=== PATIENT | female | born 1970 | race Caucasian/White ===

== ENCOUNTER 2019-11-25 10:54 | Emergency (ER) | payer BC, SELFPAY ==
[2019-11-25 10:55] VITALS: BP 151/81; PULSE 52; RESP 16; TEMP 37.1; O2SAT 100; BMI 23.1
--- NOTE | 2019-11-25 11:28 | HMH.EDGENADL ---
ED Disposition Clinical Impression: Abrasion of sclera of left eye Qualifiers: Encounter type: initial encounter Qualified Code(s): S05.8X2A - Other injuries of left eye and orbit, initial encounter Disposition: Home, Self-Care Condition on Discharge: Good Additional Instructions: Use erythromycin ointment in left eye 4 times a day for the next 2 days. See your eye doctor tomorrow as scheduled. Leave contact lenses out of your eyes until cleared for use by your eye doctor. Tylenol or ibuprofen for pain. Additional instructions for EYE PAIN or INJURY: Follow up with an help desk internship as soon as possible. Return to the emergency department if severe pain, loss of vision, pus drainage, severe swelling or redness of eyelids. Referrals: PCP,No [Primary Care Provider] - - Critical Care Critical Care Time: No Attestation: On 11/25/19, the high probability of a clinically significant, sudden or life threatening deterioration of the following system(s) required my full and direct attention, intervention and personal management. The time I documented below is in addition to time spent performing reported procedures but includes the following listed in this critical care notation. Medical Decision Making - [place] Inquiry Pt receiving controlled substance: No Vital Signs: 11/25/19 10:55 Temperature 98.8 F Temperature Source Oral Pulse Rate [Right Brachial] 52 L Respiratory Rate 16 Blood Pressure [Right Arm] 151/81 H Blood Pressure Mean [Right Arm] 104 Blood Pressure Source [Right Arm] Automatic Cuff Blood Pressure Position [Right Arm] Sitting 02 Sat by Pulse Oximetry 100 Oxygen Delivery Method Room Air General Adult HPI - General Chief complaint: Eye Problems Stated complaint: contact stuck in eye Time Seen by Provider: 11/25/19 11:28 Mode of Arrival: Ambulatory Limitations: No Limitations Description of Symptoms (Recalled from ER Triage Doc. by RN): Pt c/o left eye pain and redness. Pt reports she is new to wearing contact, just started wearing them this week, and while attemping to remove last night a piece broke off and she believes it is still left in her eye. Pt went to [place], [place] to an Urgent treatment center but they refused to see her. - History of Present Illness HPI narrative: Patient states that she tried to take a soft contact lens out of her left eye yesterday and she thinks that a piece may still be left in there or may have scratched her eye. Complains of irritation and throbbing. She just began wearing contacts this past week, she thinks this was likely due to user error. She has an appointment to see her eye doctor tomorrow. - Related Data Home Medications Medication Instructions Recorded Confirmed No Known Home Medications 11/25/19 11/25/19 Allergies Allergy/AdvReac Type Severity Reaction Status Date / Time No Known Drug Allergies Allergy Verified 11/25/19 11:18 [facility] History - Hepatitis A Screen Drug use history?: No High risk sexual behaviors?: No History of sexually transmitted infection?: No Currently employed?: No Childcare worker?: No Do you have indoor plumbing?: Yes Do you have electricity?: Yes Attestation statement:: This patient has been screened for Hepatitis A risk factors. I have reviewed the patient's past medical history: Yes Medical History: Denies:: Cancer, Diabetes Mellitus Type 1, Diabetes Mellitus Type 2 - Social History Smoking Status: Former smoker #Yrs smoked (if former smoker): 20 Smoking End Date: 03/28/2004 Alcohol Intake: current Alcohol Intake Frequency:: holidays/special occasions only Occupational Status: employed Housing: house Household Members: spouse ROS Obtained: Yes Systems reviewed as appropriate & no additional complaints - Eyes Eyes: Reports as per HPI, Reports irritation, Reports eye pain Physical Exam - General General appearance: alert, in no apparent distress - Eye Eye exam: Present: PERRL, EOMI
--- NOTE | 2019-11-25 11:42 | PC.NURSE ---
Visual acuity completed. 20/20 Right eye and 25/20 Left eye. Exam completed with glasses on as pt wears them all the time.
[2019-11-25 12:18] VITALS: BP 151/81; PULSE 52; RESP 16; TEMP 37.1; O2SAT 100
== END 2019-11-25 12:21 | disposition home or self-care (01) ==
PROVIDERS: Emergency Provider Emergency Medicine
DX: S05.8X2A Other injuries of left eye and orbit, initial encounter (principal); H18.822 Corneal disorder due to contact lens, left eye; Y92.019 Unspecified place in single-family (private) house as the place of occurrence of the external cause
CPT/HCPCS: 99282

== ENCOUNTER 2021-12-08 18:05 | Emergency (ER) | payer BC, SELFPAY ==
[2021-12-08 18:15] VITALS: BP 155/92; PULSE 83; RESP 20; TEMP 37; O2SAT 98; BMI 24.0
[2021-12-08 18:47] LABS: Adenovirus,PCR Not Detected (NotDetected); Bordetella Pertussis Not Detected (NotDetected); Chlamydophila Pneumoniae, PCR Not Detected (NotDetected); Coronavirus 19, PCR Not Detected (NotDetected); Coronavirus 229E Not Detected (NotDetected); Coronavirus NL63 Not Detected (NotDetected); Coronavirus OC43 Not Detected (NotDetected); Coronovirus HKU1,PCR Not Detected (NotDetected); Human Metapneumovirus Not Detected (NotDetected); Influenza A, PCR Not Detected (NotDetected); Influenza AH1, 2009 Not Detected (NotDetected); Influenza AH1, PCR Not Detected (NotDetected); Influenza AH3,PCR Not Detected (NotDetected); Influenza B, PCR Not Detected (NotDetected); Mycoplasma Pneumoniae, PCR Not Detected (NotDetected); Parainfluenza 1, PCR Not Detected (NotDetected); Parainfluenza 2, PCR Not Detected (NotDetected); Parainfluenza 3, PCR Not Detected (NotDetected); Parainfluenza 4, PCR Not Detected (NotDetected); Rhinovirus/Enterovirus Not Detected (NotDetected)
--- NOTE | 2021-12-08 18:50 | EXP.UTC ---
Discharge Plan Disposition Patient Disposition: Home, Self-Care Condition: Good Prescriptions Prescriptions: New azithromycin [Zithromax Z-Costa] 250 mg tablet See Rx Instructions .ROUTE .COMPLEX 5 Days Qty: 6 0RF Rx Instructions: For 250 mg dose pack: take 500 mg today (day 1), then 250 mg for 4 days (days 2-5) prednisone [prednisone] 20 mg tablet 20 mg PO BID 5 Days Qty: 10 0RF benzonatate 100 mg capsule 100 mg PO TID PRN (Reason: cough) Qty: 30 0RF Referrals Follow up/Referrals: Provider,Referral, MD [Primary Care Provider] - See instructions Activity Restrictions/Add. Instructions Additional Instructions/Restrictions: Start antibiotic today. Be sure to complete entire prescription even if feeling better Monitor temp. Tylenol every 4 hours as needed and / or ibuprofen every 6 hours as needed ( As long as your primary care physician has told you that it ok to take both. For fever/aches/pains ER if no less than 101 despite Tylenol or Motrin Humidifier/vaporizer or hot steamy shower *Tessalon Perles will not cause drowsiness but use at bedtime to help stop cough so that you may get some rest. *Start steroid today. Helps with inflammation therefore, cough and wheezing. Follow directions on the package. Reviewed side effects. Patient reports taking them before. Follow up IMMEDIATELY for new or worsening of symptoms OR no noticeable improvement over the next 48-72 hours. 911 immediately for any life threatening symptoms such as chest pain or difficulty breathing Clinical Impressions Clinical Impression: Sinusitis, Bronchitis Stand Alone Forms Stand Alone Forms: Work/School Release Instructions Patient Instructions: Acute Bronchitis, DI for Sinusitis Discharge ED Provider: D[address] [facility] General Stated complaint: covid test, cough, EDWARDS, congestion Mode of Arrival: Ambulatory Source of Information: Patient Limitations: No Limitations Time Seen by Provider: 12/08/21 18:50 Description of Symptoms (Recalled from Triage Doc. by RN): PATIENT C/O COUGH AND CHEST BURNING SINCE TUESDAY HEENT Symptoms (Recalled from RN notes): No Resp Symptoms (Recalled from RN notes): Yes Skin Symptoms (Recalled from RN notes): No MS Symptoms (Recalled from RN notes): No Functional Status (Recalled from RN notes): WNL History of Present Illness Provider Complaint: Patient states that she has had cough, burning in her chest with cough, sinus congestion and drainage States that she has took several home COVID test and they was negative States that today she was feeling worse so she came in to get checked Related Data Previous Rx's Medication Instructions Recorded azithromycin 250 mg tablet See Rx Instructions PO .COMPLEX 5 12/08/21 (Zithromax Z-Costa) days #6 tabs benzonatate 100 mg capsule 100 mg PO TID PRN cough #30 caps 12/08/21 prednisone 20 mg tablet 20 mg PO BID 5 days #10 tabs 12/08/21 Allergies Allergy/AdvReac Type Severity Reaction Status Date / Time No Known Drug Allergies Allergy Verified 11/25/19 11:18 Worker's Comp Is this a Worker's Comp case?: No PFSH PFSH Surgical History (Updated 12/08/21 @ 18:42 by Mariel Monroe RN) History of hysterectomy History of tubal ligation Social History (Updated 12/08/21 @ 18:42 by Mariel Monroe RN) Smoking Status: Former smoker pack-years: 20 alcohol intake: current current occupational status: employed Travel in the last 8 weeks: None household members: spouse housing: house current occupation: [employer] Obtained: Yes All systems reviewed & no additional complaints except as documented and Yes Systems reviewed as appropriate & no additional complaints except as documented ENT Ears, Nose, Mouth, and Throat: Reports system reviewed and no additional complaints, except as documented, Reports as per HPI, Reports sinus pain and Reports sinus pressure Cardiovascular [facility]
[2021-12-08 19:02] VITALS: BP 155/92; PULSE 83; RESP 20; TEMP 37; O2SAT 98
[2021-12-09 03:35] LABS: Respiratory Syncytial Virus Detected (NotDetected)
== END 2021-12-08 19:09 | disposition home or self-care (01) ==
PROVIDERS: Emergency Provider Emergency Medicine
DX: J20.5 Acute bronchitis due to respiratory syncytial virus (principal); J01.90 Acute sinusitis, unspecified; Z87.891 Personal history of nicotine dependence; Z20.822 Contact with and (suspected) exposure to COVID-19
CPT/HCPCS: 87581; 87632; 87798; 99212; C9803; G0463; U0003; U0005

== ENCOUNTER 2022-06-01 07:02 | Emergency (ER) | payer BC, SELFPAY ==
[2022-06-01] VITALS (8 sets, daily range): BP systolic 123–152; BP diastolic 71–89; PULSE 52–59; RESP 15–18; TEMP 36.7–36.8; O2SAT 96–100; BMI 24.0
--- NOTE | 2022-06-01 07:16 | ECG_ITS ---
APPROVED REPORT Exam: Resting ECG HR:50 bpm ECG Measurements Heart Rate 50 AXES RI 158 P 57 QRSd 94 QRS 66 QT 424 T 42 QTc 399 Conclusion SINUS BRADYCARDIA WITH OCCASIONAL SUPRAVENTRICULAR PREMATURE COMPLEXES POSSIBLE RIGHT VENTRICULAR CONDUCTION DELAY [RSR (QR) IN V1/V2] BORDERLINE ECG UNCONFIRMED REPORT Electronically signed by : Darryn Barkley MD 06/01/2022 19:16:51
--- NOTE | 2022-06-01 07:28 | HMH.EDGENADL ---
Discharge Plan Disposition Patient Disposition: Home, Self-Care Condition: Good Chief Complaint: Shortness of Breath/Dyspnea Prescriptions Prescriptions: No Action azithromycin [Zithromax Z-Costa] 250 mg tablet See Rx Instructions .ROUTE .COMPLEX 5 Days Qty: 6 0RF Rx Instructions: For 250 mg dose pack: take 500 mg today (day 1), then 250 mg for 4 days (days 2-5) prednisone [prednisone] 20 mg tablet 20 mg PO BID 5 Days Qty: 10 0RF benzonatate 100 mg capsule 100 mg PO TID PRN (Reason: cough) Qty: 30 0RF Referrals Follow up/Referrals: Provider,MD Gracia [Primary Care Provider] - See instructions Gómez Negrete MD [Staff Physician] - See instructions Activity Restrictions/Add. Instructions Additional Instructions/Restrictions: Event monitor. Follow-up with cardiology in the office tomorrow at 9 AM. Off work until cleared by cardiology. Clinical Impressions Clinical Impression: Palpitations, Sinus arrhythmia Stand Alone Forms Stand Alone Forms: Work/School Release Instructions Patient Instructions: DI for Palpitations Discharge ED Provider: Armaan Elizalde General Adult HPI General Chief complaint: Shortness of Breath/Dyspnea Stated complaint: high blood pressure,SOA Time Seen by Provider: 06/01/22 07:33 History of Present Illness HPI narrative: 1 month history of palpitations and shortness of breath. States that many times each day she has an sensation that her heart is beating hard and sometimes fast, sometimes slow, associated with shortness of breath. She says she has a prior history of mitral valve prolapse. She had a stress test and an echocardiogram about 12 years ago and says she also had an irregular heartbeat at that time. She was seen yesterday at [facility] emergency room in [place] for the same complaints and says she had a work-up including EKG, chest x-ray, blood work. Work-up was unremarkable. She was told that she should see a senior loan processor. She was diagnosed with sinus arrhythmia. 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 She takes trazodone for sleep and oxybutynin for her bladder. No other medications or chronic medical problems. She is a non-smoker. Related Data Previous Rx's Medication Instructions Recorded azithromycin 250 mg tablet See Rx Instructions PO .COMPLEX 5 12/08/21 (Zithromax Z-Costa) days #6 tabs benzonatate 100 mg capsule 100 mg PO TID PRN cough #30 caps 12/08/21 prednisone 20 mg tablet 20 mg PO BID 5 days #10 tabs 12/08/21 Allergies Allergy/AdvReac Type Severity Reaction Status Date / Time No Known Drug Allergies Allergy Verified 11/25/19 11:18 [facility] Disclaimer: The information contained in this section may have been updated after the patient was seen, as this information can be updated by other users. Surgical History (Updated 12/08/21 @ 18:42 by Mariel Monroe RN) History of hysterectomy History of tubal ligation Social History (Updated 12/08/21 @ 18:42 by Mariel Monroe RN) Smoking Status: Never smoker alcohol intake: current current occupational status: employed Travel in the last 8 weeks: None household members: spouse housing: house current occupation: [employer] Obtained: Yes Systems reviewed as appropriate & no additional complaints except as documented Constitutional Constitutional: Denies fever(s), Denies headache(s) and Denies weakness ENT Ears, Nose, Mouth, and Throat: Denies headache(s), Denies nasal discharge and Denies sore throat Cardiovascular Cardiovascular: Denies chest pain, Reports palpitations and Reports rapid heart rate Respiratory Respiratory: Reports shortness of breath and Denies cough Gastrointestinal Gastrointestingal: Denies abdominal pain, constipation, diarrhea or vomiting Genitourinary Female G
--- NOTE | 2022-06-01 07:55 | PC.NURSE ---
Spoke with Miranda at [facility] with medical records, she will be sending over her ER records from [facility] shortly
--- NOTE | 2022-06-01 08:05 | PC.NURSE ---
cardiology office notified of consult on pt.
--- NOTE | 2022-06-01 08:14 | PC.NURSE ---
rounded on pt at this time, pt states no needs at this time. Updated pt we have contacted cardiology to come over and see her. Call light within reach, updated pts whiteboard in room.
--- NOTE | 2022-06-01 08:27 | PC.NURSE ---
Received records from [facility] and were given to BROOKE SUBRAMANIAN
--- NOTE | 2022-06-01 09:00 | PC.NURSE ---
Called Cardiology office again, spoke with Radha regarding consult.
--- NOTE | 2022-06-01 09:02 | PC.NURSE ---
Rounded on patient; she is sitting on ED stretcher looking at phone with call light within reach. She is aware that we are waiting on cardiology consult. No other needs at this time
--- NOTE | 2022-06-01 09:23 | PC.NURSE ---
Cards Provider Breanna returned consult request call to see pt
--- NOTE | 2022-06-01 09:25 | PC.NURSE ---
BROOKE SUBRAMANIAN speaking with parth sargent from cardiology
--- NOTE | 2022-06-01 09:28 | PC.NURSE ---
JOSE Carlos with Cardiology at [facility]
--- NOTE | 2022-06-01 09:41 | EXP.CARD.CON ---
History of Present Illness History of Present Illness Consult date: 06/01/22 Requesting physician: Armaan Elizalde Consult reason: shortness of breath Chief complaint: Palpitations, soa History of present illness: 51-year-old white female, with history of mitral valve prolapse, presented to emergency department requesting to be evaluated by cardiology. Patient reports she was at work yesterday at [employer] when she experienced palpitations, heart racing, and shortness of air. She went to the nurse and pulse was noted to be in the 140s. She states she was sent to [facility] ER for evaluation which was unremarkable other than an EKG showing sinus arrhythmia. Patient was advised she needs to follow-up with cardiology. Patient reports she tried to go back to work today but was not allowed to return until she is cleared by cardiology so she came here because she heard we have on-call cardiology. At this time patient denies any symptoms. Reports long history of intermittent palpitations, shortness of air, heart rate fluctuating from 40s to 140s. State blood pressure fluctuates as well, sometimes its high, other times low. Patient currently denies chest pain, dizziness, shortness of air, lower extremity edema, nausea or vomiting. Patient denies history of syncope. Upon presentation to emergency department EKG shows sinus arrhythmia with a rate ranging from high 40s to 60. [facility] Disclaimer: The information contained in this section may have been updated after the patient was seen, as this information can be updated by other users. Surgical History (Updated 12/08/21 @ 18:42 by Mariel Monroe RN) History of hysterectomy History of tubal ligation Social History (Updated 12/08/21 @ 18:42 by Mariel Monroe RN) Smoking Status: Never smoker alcohol intake: current current occupational status: employed Travel in the last 8 weeks: None household members: spouse housing: house current occupation: [employer] Review of Systems Constitutional Constitutional: Denies headache(s) and Denies weakness ENT Ears, Nose, Mouth, and Throat: Denies headache(s) *Cardiovascular Cardiovascular: Reports dyspnea and Reports irregular heart rhythm *Respiratory Respiratory: Reports dyspnea *Musculoskeletal Musculoskeletal: Denies numbness *Neurologic Neurologic: Denies headache(s), Denies numbness and Denies weakness Exam Data for Last 24 hours Vital signs and Labs for Last 24 Hours: Temp Pulse Resp BP Pulse Ox 98.3 F 59 L 16 140/81 96 06/01/22 07:25 06/01/22 08:00 06/01/22 09:30 06/01/22 09:30 06/01/22 08:30 I & O for Last 24 hours: Intake & Output 05/29/22 05/30/22 05/31/22 06/01/22 23:59 23:59 23:59 23:59 Weight 140 lb Constitutional Constitutional: no acute distress *Routine Respiratory Exam Respiratory: Present CTA bilaterally and symmetric chest movement *Routine Cardiovascular Exam Cardiovascular: Present RRR, Normal S1 and Normal S2 *Routine Abdominal Exam Abdominal: Present soft and normoactive bowel sounds; Absent tenderness *Routine Extremities Exam Extremities: Present full ROM and normal capillary refill; Absent edema *Routine Skin Exam Skin: Present intact, dry and warm Detailed Neck Exam: Thyroids Thyroid: Absent bruit Meds Home Medications and Allergies Home Medications Medication Instructions Recorded Confirmed Type azithromycin 250 mg tablet See Rx Instructions PO .COMPLEX 5 12/08/21 Rx (Zithromax Z-Costa) days #6 tabs benzonatate 100 mg capsule 100 mg PO TID PRN cough #30 caps 12/08/21 Rx prednisone 20 mg tablet 20 mg PO BID 5 days #10 tabs 12/08/21 Rx New Prescriptions to Start Prescriptions: Allergies Allergy/AdvReac Type Severity Reaction Status Date / Time No Known Drug Allergies Allergy Verified 11/25/19 11:18 Assessment and Plan *Assessment and plan (1) Sinus arrhythmia: Status: Acute Category: Medical Code(s): I49
--- NOTE | 2022-06-01 09:47 | PC.NURSE ---
notified RT of event monitor for , updated pt on POC-waiting on monitor
--- NOTE | 2022-06-01 10:12 | PC.NURSE ---
RT at placing holter monitor on patient
== END 2022-06-01 10:20 | disposition home or self-care (01) ==
PROVIDERS: Emergency Provider Emergency Medicine
DX: I49.8 Other specified cardiac arrhythmias (principal); R00.2 Palpitations; R06.02 Shortness of breath
CPT/HCPCS: 93005; 93270; 99284; 99285

== ENCOUNTER → 2022-06-23 06:04 | Outpatient (CLI) | payer BC, SELFPAY ==
--- NOTE | 2022-06-23 06:07 | CA_ITS ---
APPROVED REPORT Exam: Pharmacologic Technologist: Makayla Rueda Ht: 5 ft 4 in Wt: 146 lbs BSA: 1.71 m2 HR: 58 bpm BP: 133/62 mmHg Indications: Tachy-Bonilla Syn, Palpitations Medical History Medications: OxYbutynin,,,,, Trazodone,,,,, Stress Test Details Test: Emmanuel HR Resting HR: 71 bpm Max Heart Rate (APMHR): 167.337268 bpm Max HR Achieved: 142 bpm Target HR (85% APMHR): 141.934889 bpm % of APMHR: 85.03 Recovery HR: 85 bpm BP Resting BP: 133.0/62.0 mmHg Max BP: 172.0/93.0 mmHg Recovery BP: 148.0/80.0 mmHg ECG Resting ECG: Sinus rhythm with marked heart rate variability Clinical Exercise duration: 04:12 min Highest Stage Achieved: Exercise capacity: 1.0 METs Stress ECG Conclusion Symptoms: Shortness of air and stomach discomfort, headache. No chest pain. Arrhythmias/Ectopy: Sinus tachycardia, rare PVC ST-T Changes: NS T wave changes. Conclusion: Unremarkable Lexiscan stress. Myoview images reported separately. Test Summary REST 18:08 0.0 0.0 71 . 133/ 62 . . Stage 1 . . . . . . . Myoview Injected Stage 1 01:00 10.0 0.0 130 . . . . Stage 1 02:00 10.0 0.0 140 . 160/ 85 . . Stage 1 03:00 10.0 0.0 126 . 155/ 90 . . Stage 2 01:00 12.0 0.0 96 . 159/ 85 . . Stage 2 01:12 12.0 0.0 107 . 159/ 85 . Stop exercise at 04:12 RECOVERY 01:00 0.0 0.0 93 . 172/ 93 . . RECOVERY 02:00 0.0 0.0 88 . 143/ 95 . . RECOVERY 03:00 0.0 0.0 90 . 143/ 95 . . RECOVERY 04:00 0.0 0.0 95 . 155/ 91 . . RECOVERY 05:00 0.0 0.0 82 . 148/ 80 . . RECOVERY 05:23 0.0 0.0 89 . 148/ 80 . . Electronically signed by : Delta Carlton MD 06/23/2022 18:22:09
--- NOTE | 2022-06-23 06:07 | CA_ITS ---
APPROVED REPORT EXAM: Comprehensive 2D, Doppler, and color-flow Echocardiogram Weaver Wire Loom: Roopa Aldridge CRT Ht: 5 ft 4 in Wt: 146lbs BSA: 1.71 BP: 179/93 mmHg Indications: Shortness of Breath, Palpitations, Fatigue, Hypertension/HDD, tachy/luz marina syndrome, hx MVP, HR 40's laying, 130's standing. 2D Dimensions LVOT 1.74 cm (M/F) 1.5-2.5 LA Volume 26.30 mL LA Volume Index 15.00 mL/m2 (M/F) 16-34 M-Mode Dimensions RVDd 3.25 cm (0.9-2.6) LA Diam 2.62 cm (1.9-4.0) LVDd 4.06 cm (3.5-5.7) Ao Diam 3.28 cm (2.0-3.7) LVDs 2.38 cm (3.5-5.7) IVSd 1.16 cm (0.6-1.1) PWd 0.81 cm (0.6-1.1) EF (Teich) 72.80% FS 41.40% EDV (Teich) 72.50 mL TAPSE 2.55 (<1.7) ESV (Teich) 19.70 mL LV Diastology E Decel Time 160.00 (160-240 msec) E/A Ratio 1.26 MED E' 12.20 (< 7 cm/sec) MED A' 16.30 cm/s E'/MED E' Ratio 6.16 (>14) LAT E' 14.00 (<10 cm/sec) LAT A' 15.30 cm/s E/LAT E' Ratio 5.36 (>14) Aortic Valve AO Peak GR. 13.00 mmHg Mitral Valve MV A Velocity 60.00 (40-130 cm/s) E/A Ratio 1.26 MV Decel. Time 160.00 (160-240 ms) Pulmonary Valve PV Peak Velocity 172.00 (50-150 cm/s) Tricuspid Valve TR P. Velocity 149.00 cm/s RAP Estimate 10.00 mmHg RVSP 18.90 mmHg Left Ventricle Left atrium is normal size left ventricle is normal size, estimated ejection fraction 55% with no regional wall motion abnormality, diastolic parameters are within normal range. Right Ventricle Right atrium and right ventricle are normal size and contractility. Aortic Valve Aortic valve is grossly normal there is no aortic stenosis aortic insufficiency. Mitral Valve Mitral valve is grossly normal, there is trace mitral regurgitation. Tricuspid Valve Tricuspid grossly normal, there is trace tricuspid regurgitation, tricuspid regurgitation jet velocity is inadequate for calculation of the right ventricular systolic pressure. Pulmonic Valve Pulmonic valve is poorly visualized. Great Vessels Aortic root normal size. Inferior vena cava normal size with normal inspiratory collapse. Pericardium No significant pericardial failure. Conclusion 1. Normal left ventricular size preserved left ventricular systolic function, estimated ejection fraction 55% with no regional wall motion abnormality, diastolic parameters are within normal range. 2. Trace mitral and tricuspid regurgitation. 3. No significant pericardial effusion noted. 4. Inferior vena cava is normal size with normal inspiratory collapse. Electronically signed by : Delta Carlton MD 06/23/2022 21:10:42
--- NOTE | 2022-06-23 06:07 | NM_ITS ---
APPROVED REPORT Exam: Nuclear Stress Test Indication: CHEST PAIN..SHORT OF BREATH..PALPITATIONS..FATIGUE Patient Location: Outpatient Stress Tech: Makayla Rueda NC Tech:Gail Almaraz VIKTORIYA RT(R)(N) Ht: 5 ft 4 in Wt: 140 lbs Bra Size: 34B HR: 71 bpm BP: 133/62 mmHg BSA: 1.68 m2 TID: 1.16 BMI: 24.0 History: CHEST PAIN..SHORT OF BREATH..PALPITATIONS..FATIGUE Procedure: Patient received 0.4 mg of intravenous Lexiscan, resting heart rate 71 bpm, resting blood pressure 133/62 mmHg, with Lexiscan maximum heart rate achieved was 142 bpm which is Less than 85 % of the maximum predicted heart rate and blood pressure was 172/93 mmHg. With Lexiscan, patient denied any complaint of chest pain. Electrocardiogram Resting electrocardiogram shows sinus rhythm, with Lexiscan less than 1.[address] segment depression noted from the baseline EKG. The EKG portion of the Lexiscan is nondiagnostic. Cardiac Stress and Resting SPECT Images: Cardiac Stress and Resting SPECT images were obtained using technetium 99m Myoview 31.7 mCi stress and 10.37 mCi at rest. Gated SPECT analysis of segmental wall motion and calculation of the ejection fraction also done. Prone images were also obtained. Cardiac stress and rest respectively show uniform myocardial activity without segmental perfusion abnormality, computer derived ejection fraction is 53% with no regional wall motion abnormality, right ventricle is normal size and contractility. Conclusion: 1. The EKG portion of the Lexiscan is nondiagnostic. 2. No scintigraphic evidence of reversible ischemia seen, computer derived ejection fraction is 53% with no regional wall motion abnormality, right ventricle is normal size and contractility. 3. Normal Lexiscan Myoview study. Electronically signed by : Delta Carlton MD 06/23/2022 18:38:51
== END ==
PROVIDERS: Visit Provider Nurse Practitioner
DX: R00.2 Palpitations (principal); I49.5 Sick sinus syndrome; I49.8 Other specified cardiac arrhythmias
CPT/HCPCS: 78452; 93017; 93306; A9502; J2785

== ENCOUNTER → 2022-06-28 08:56 | Outpatient (CLI) | payer BC, SELFPAY ==
[2022-06-28 09:56] LABS: Basophils % 0.9 % (0.1-2.0); Eosinophils # 0.1 K/mm3 (0.0-0.4); Eosinophils % 2.5 % (0.1-12.0); Hemoglobin 13.5 g/dL (12.2-16.2); Lymphocytes # 1.6 K/mm3 (0.7-4.5); Lymphocytes % 36.6 % (10-50); Mean Corpuscular HGB Conc 33.8 g/dL (31.8-35.4); Mean Corpuscular Hemoglobin 31.7 pg (27.0-31.2); Mean Corpuscular Volume 93.9 fl (81-99); Mean Platelet Volume 8.1 fl (7.4-10.4); Monocytes # 0.3 K/mm3 (0.1-1.0); Monocytes % 5.9 % (1.7-9.3); Neutrophils # 2.4 K/mm3 (1.8-7.8); Platelet Count 249 K/mm3 (142-424); Red Blood Count 4.26 M/mm3 (4.20-5.40); Red Cell Distribution Width 12.3 % (11.5-17.5); White Blood Count 4.5 K/mm3 (4.8-10.8)
[2022-06-28 10:39] LABS: Alanine Aminotransferase 34 U/L (12-78); Albumin Level 4.7 g/dl (3.5-5.0); Alkaline Phosphatase 85 U/L (38-126); Anion Gap 10.3 mEq/L (5-15); Aspartate Amino Transferase 30 U/L (14-36); Bilirubin,Indirect 0.4 mg/dL (0.0-0.9); Bilirubin,Total 0.4 mg/dl (0.2-1.3); Bilirubin,Unconjugated 0.5 mg/dL (0.0-1.1); Blood Urea Nitrogen 14 mg/dl (7-17); Carbon Dioxide 30 mmol/L (22.0-30.0); Chloride 104 mmol/L (98-107); Chol/HDL Ratio 3.4 (1-3.5); Cholesterol 226 mg/dl (140-200); Estimated Glomerular Filt Rate 75 ml/min (>60); GFR (African American) 91 ML/MIN (>60); Glucose 93 mg/dl (74-100); HDL Cholesterol 66 mg/dl (40-60); Potassium 4.3 mmoL/L (3.5-5.1); Sodium 140 mmol/L (136-145); Total Protein,Serum 7.2 g/dl (6.3-8.2); Triglycerides 98 mg/dl (30-150); VLDL Cholesterol 20 mg/dL (0-40)
[2022-06-28 10:50] LABS: Direct LDL Cholesterol 109.16 mg/dL (100-129)
[2022-06-28 10:55] LABS: Free T4 (Free Thyroxine) 1.12 ng/dl (0.78-2.19)
[2022-06-28 11:09] LABS: Thyroid Stimulating Hormone 3.55 uIU/mL (0.465-4.68)
== END ==
PROVIDERS: Visit Provider Nurse Practitioner
DX: R06.00 Dyspnea, unspecified (principal); I49.5 Sick sinus syndrome; I49.8 Other specified cardiac arrhythmias; R00.2 Palpitations; R00.1 Bradycardia, unspecified; I63.9 Cerebral infarction, unspecified; I99.8 Other disorder of circulatory system; I11.9 Hypertensive heart disease without heart failure; E11.9 Type 2 diabetes mellitus without complications
CPT/HCPCS: 36415; 80048; 80061; 80076; 84439; 84443; 85025

== ENCOUNTER 2022-07-07 11:43 | Day surgery (SDC) | payer BC, SELFPAY ==
[2022-07-07] VITALS (9 sets, daily range): BP systolic 99–148; BP diastolic 44–85; PULSE 51–95; RESP 16–18; O2SAT 94–100; BMI 24.7
--- NOTE | 2022-07-07 07:12 | IR_ITS ---
APPROVED REPORT Patient Location: Outpatient Temperature Regulator Pyrometer: VIKTORIYA Cowart RT (R) PROCEDURES 1. Pocket formation for Permanent Pacemaker Placement. 2. Placement of an atrial sensing and pacing coil into the right atrial appendage. 3. Placement of a ventricular sensing and pacing coil in the right ventricular apex. 4. Permanent Pacemaker Placement. INDICATION Sick Sinus Syndrome; Tachy/Bonilla Syndrome Informed consent was obtained prior to the procedure. COMPLICATIONS None Estimated Blood Loss: Less than 10 mls TECHNIQUE 1% Lidocaine with epinephrine used to anesthetized the left anterior aspect of the chest. Scalpel was used to make the initial cutaneous incision while electrocautery was used to dissect down tinto the fascia. The fascia was lifted off the pectoralis muscle and digitally manipulated creating a pocket for the pacemaker. The patient was then placed in Trendelenburg position and the subclavian vein was accessed twice via the Selinger technique, there are two wires in the vein. A 6 [place] Helen[place] sheath was placed under fluoroscopic guidance into the subclavian vein over one of the wires while keeping the other wire in place within the subclavian vein. The dilator was removed from the sheath. Using fluoroscopic guidance, the ventricular lead was placed into the right ventricular apex, screwed and secured into place. Electronic interrogation proved acceptable thresholds and voltage within the lead. Using 3-0 silk, the ventricular lead was then secured into place. Lead was secured to the facia using the 3-0 silk. Following this, the sheath was pealed away. An additional 6 St Helenian fresh sheath and dilator was placed over the existing wire. Using fluoroscopic guidance, the atrial lead was the placed into the right atrial appendage and screwed and secured in place. Electrical interrogation demonstrated acceptable thresholds and voltage number. The atrial lead was then secured into place using 3-0 silk. 1 gram of Ancef was used to flush the pocket. Following the pacemaker generator being secured to the fascia and in place, Monocryl was used to close the subcutaneous layers while freedom were used to close the cutaneous layer. A pressure dressing was placed and the patient was transferred to the postop holding area in stable condition for postoperative care. INTERROGATION Generator Model number: [employer]gen [id number] Generator Serial number: [id number] Atrial lead model number: Tendril STS [id number]-46 Atrial lead serial number: [id number] P-wave: 0.5 V Impedence: 640 Ohms Threshold: 0.4 ms @ 2.0 mV Right Ventricular lead model number: Nahid MAYS [id number]-52 Right Ventricular lead serial number: [id number] R-wave: 0.5 v Impedence: 940 Ohms Threshold: 0.4 ms @ 9.9 mV Pacing Parameters: Mode: DDDR Base/Max Track:60 ppm / 130 ppm No diaphragmatic stimulation at 10 volts. IMPRESSION 1. Successful pocket formation for Permanent Pacemaker Placement. 2. Successful placement of an atrial sensing and pacing coil into the right atrial appendage. 3. Successful placement of a ventricular sensing and pacing coil in the right ventricular apex. 4. Successful permanent Pacemaker Placement. PLAN 1. Post op wound care Electronically signed by : Gómez Negrete MD 07/08/2022 08:35:04
--- NOTE | 2022-07-07 13:20 | EXP.ANES.CKL ---
[facility] Disclaimer: The information contained in this section may have been updated after the patient was seen, as this information can be updated by other users. Medical History Fluctuating blood pressure HTN (hypertension) Symptomatic bradycardia Tachy-luz marina syndrome Surgical History History of hysterectomy History of tubal ligation Social History Smoking Status: Never smoker alcohol intake: current substance use type: denies use current occupational status: employed Travel in the last 8 weeks: None household members: spouse housing: house current occupation: [employer] Anesthesia Checklist Patient Identification Patient Identification: Arm Band and Verbal (Name & ) Structural Data Admitted From: Home Planned Operative Procedure/s: Dual chamber pacemaker Consent for Planned Operative Procedure(s) Verified: Yes NPO Status Verified Time NPO: 00:00 Airway Assessment C-Spine Mobility Assessed: Yes TMJ Mobility Assessed: Yes Dentition: Good Dentition Neurological Assessment Level of Consciousness: Awake Hx Seizures: No Numbness or tingling in extremities: No Anesthesia Plan Anesthesia Risk discussed: Yes Anesthesia Plan: Verified ASA Class: III Anesthesia Type: MAC
--- NOTE | 2022-07-07 14:46 | XR_ITS ---
FINAL REPORT CLINICAL HISTORY: Confirm pacemaker/AID placement FINDINGS: SINGLE-VIEW CHEST The heart size is normal. The mediastinum is normal. Left-sided pacemaker is identified. The lungs are clear. There is no pneumothorax. IMPRESSION: No acute cardiopulmonary process. Reviewed, Interpreted and Dictated by Abdi Suarez III, MD Transcribed by Uzma Montalvo Authenticated and [facility]
== END 2022-07-07 16:55 | disposition home or self-care (01) ==
PROVIDERS: Visit Provider Internal Medicine
DX: I49.5 Sick sinus syndrome (principal); I10 Essential (primary) hypertension; Z79.899 Other long term (current) drug therapy; I99.8 Other disorder of circulatory system
CPT/HCPCS: 33208; 71045; C1785; C1898; J2704

== ENCOUNTER → 2022-07-30 07:51 | Outpatient (CLI) | payer BC, SELFPAY ==
--- NOTE | 2022-07-30 07:55 | CA_ITS ---
FINAL REPORT CLINICAL HISTORY: HTN FINDINGS: Aorta velocity: 148 cm/sec Right kidney: 10.9 cm. No evidence of hydronephrosis or mass. Right intrarenal RI: .63 Right renal artery velocity: 187 cm/sec. Right RAR (Renal artery-Aortic Ratio): 1.3 Left Kidney: 11.1 cm. No evidence of hydronephrosis or mass. Left intrarenal RI: .54 Left renal artery velocity: 178 cm/sec. Left RAR (Renal Artery-Aortic Ratio): 1.2 IMPRESSION: No evidence of significant renal artery stenosis. CT angiogram or postcontrast MR angiogram would be more sensitive for evaluation of possible renal artery stenosis. Reviewed, Interpreted and Dictated by Aryan Perez MD Transcribed by Uzma Montalvo Authenticated and . [facility]
--- NOTE | 2022-07-30 08:19 | US_ITS ---
FINAL REPORT CLINICAL HISTORY: I10 - Essential (primary) hypertension FINDINGS: The right kidney measures 9.8 cm in length. It is normal in echogenicity. There is no hydronephrosis. The left kidney measures 10.6 cm in length. It is normal in echogenicity. There is no hydronephrosis. The spleen is unremarkable. IMPRESSION: Normal renal ultrasound. Reviewed, Interpreted and Dictated by Aryan Perez MD Transcribed by Uzma Montalvo Authenticated and [facility]
== END ==
PROVIDERS: PCP Internal Medicine; Visit Provider Physician Assistant
DX: I10 Essential (primary) hypertension (principal); I99.8 Other disorder of circulatory system; Z95.0 Presence of cardiac pacemaker
CPT/HCPCS: 76770; 93976

== ENCOUNTER → 2022-12-06 13:36 | Outpatient (CLI) | payer BC, SELFPAY ==
--- NOTE | 2022-12-06 13:41 | XR_ITS ---
FINAL REPORT CLINICAL HISTORY: cough, shortness of breath COMPARISON: 07/07/2022 FINDINGS: Two views of the chest were obtained. Left subclavian pacer is present. The heart size and pulmonary vascularity are within normal limits. The mediastinum is normal. No acute pulmonary abnormality is identified. There is no pneumothorax. The bony thorax is intact. IMPRESSION: No active cardiopulmonary disease. Reviewed, Interpreted and Dictated by Abdi Suarez III, MD Transcribed by Yessenia Mims Authenticated and [facility]
== END ==
PROVIDERS: Visit Provider Physician Assistant
DX: R06.02 Shortness of breath (principal); R05.9 Cough, unspecified; R60.0 Localized edema
CPT/HCPCS: 71046

== ENCOUNTER → 2022-12-27 14:57 | Outpatient (CLI) | payer BC, SELFPAY ==
--- NOTE | 2022-12-27 15:00 | CA_ITS ---
APPROVED REPORT EXAM: Comprehensive 2D, Doppler, and color-flow Echocardiogram Sound Person: Ileana Vieira RT(R) Ht: 5 ft 3 in Wt: 145lbs BSA: 1.69 BP: 147/87 mmHg Indications: dyspnea, pacemaker, edema, HTN, SOB, hx tachy-luz marina syndrome 2D Dimensions LVOT 1.93 cm (M/F) 1.5-2.5 LA Volume 49.70 mL LA Volume Index 29.41 mL/m2 (M/F) 16-34 M-Mode Dimensions RVDd 2.75 cm (0.9-2.6) LA Diam 2.93 cm (1.9-4.0) LVDd 5.03 cm (3.5-5.7) Ao Diam 2.15 cm (2.0-3.7) LVDs 3.79 cm (3.5-5.7) IVSd 0.80 cm (0.6-1.1) PWd 0.54 cm (0.6-1.1) EF (Teich) 48.60% FS 24.70% EDV (Teich) 119.90 mL ESV (Teich) 61.60 mL LV Diastology E Decel Time 183.00 (160-240 msec) E/A Ratio 1.3 MED E' 10.00 (< 7 cm/sec) E'/MED E' Ratio 8.54 (>14) LAT E' 12.90 (<10 cm/sec) E/LAT E' Ratio 6.62 (>14) Mitral Valve MV E Max Alpesh. 85.00 (40-130 cm/s) MV A Velocity 63.00 (40-130 cm/s) E/A Ratio 1.36 MV Decel. Time 183.00 (160-240 ms) MV PHT 54.00 ms Tricuspid Valve TR P. Velocity 259.00 cm/s RAP Estimate 10.00 mmHg RVSP 36.80 mmHg Left Ventricle The left ventricle is normal size. The left ventricular systolic function is normal. The left ventricular ejection fraction is within the normal range. There is normal left ventricular wall thickness. There is normal LV segmental wall motion. The left ventricular diastolic function is normal. LVEF is 65%. Right Ventricle The right ventricle is mildly dilated. The right ventricular systolic function is normal. Device lead is noted in the RV. Atria The left atrium size is normal. The right atrium size is normal. There is no Doppler evidence of interatrial shunt. Aortic Valve The aortic valve is normal in structure. There is no aortic valvular stenosis. No aortic regurgitation is present. Mitral Valve The mitral valve is normal in structure. No evidence of mitral valve stenosis. Trace mitral regurgitation. Tricuspid Valve The tricuspid valve leaflets are thin and pliable. Mild tricuspid regurgitation. RVSP is 20-25 mmHg. Pulmonic Valve The pulmonary valve is normal in structure. Trace pulmonic regurgitation. Great Vessels The aortic root is normal in size. The ascending aorta is normal in size. IVC is normal in size and collapses >50% with inspiration. Pericardium There is no pericardial effusion. Other Information Study Quality: Adequate Conclusion Normal biventricular systolic function. Mild RV dilatation. No significant valvular stenosis or regurgitation. Electronically signed by : Neha Duncan MD 12/27/2022 23:02:13
== END ==
PROVIDERS: Visit Provider Physician Assistant
DX: R06.02 Shortness of breath (principal); I10 Essential (primary) hypertension; R05.9 Cough, unspecified; R60.0 Localized edema; Z95.0 Presence of cardiac pacemaker
CPT/HCPCS: 93306

== ENCOUNTER → 2023-01-03 16:03 | Outpatient (CLI) | payer BC, SELFPAY ==
[2023-01-03 18:37] LABS: Blood Urea Nitrogen 20 mg/dl (7-17); Estimated Glomerular Filt Rate 65 ml/min (>60); GFR (African American) 79 ML/MIN (>60)
== END ==
PROVIDERS: Internal Medicine; PCP Nurse Practitioner Family; Visit Provider Nurse Practitioner Family
DX: R07.9 Chest pain, unspecified (principal)
CPT/HCPCS: 36415; 82565; 84520

== ENCOUNTER → 2023-01-10 12:04 | Outpatient (CLI) | payer BC, SELFPAY ==
--- NOTE | 2023-01-10 12:25 | PC.NURSE ---
pt arrived to preop c/o nausea, EDWARDS, and cough. She stated she wanted to cancel but didnt want to not be able to get in again for a while. this RN spoke with Quentin Harper APRN, whom stated to cancel test and get it rescheduled. pt is rescheduled now for 01/24/23 at 1000. pt instructed to call cardiology office when they are off lunch to reschedule follow up with them.
== END ==
PROVIDERS: PCP Nurse Practitioner Family; Visit Provider Nurse Practitioner Family
DX: R07.9 Chest pain, unspecified (principal)

== ENCOUNTER → 2023-01-24 08:55 | Outpatient (CLI) | payer BC, SELFPAY ==
--- NOTE | 2023-01-24 08:59 | CT_ITS ---
APPROVED REPORT Chargemaster Analyst: CLINICAL INDICATION Chest Pain TECHNIQUE Image Acquisition: A 128 slice MDCT scanner (FLX Microa View) was used for data acquisition. A noncontrast coronary calcium scan was performed. A CT attenuation threshold of 130 Hounsfield units (HU) was used for the detection of calcium in contiguous voxels of 1 sq mm in area to be counted as individual lesions. Bolus tracking in the ascending aorta with a threshold of 180 HU was performed. Immediately afterwards, ECG synchronized cardiac CT was then performed from the cardiac base to apex using retrospective gating with ECG tube current modulation. A total of 85 mL of Isovue 370 mg/mL contrast medium was administered at 5 mL/sec followed by a saline flush using a biphasic injection protocol. A tube voltage of 120 KVp was used. The patient received the following medications prior to the cardiac CT. 0.8 mg of sublingual nitroglycerin The average heart rate at the time of acquisition was 60 bpm and V-paced. Image Reconstruction Transaxial images were reconstructed at 0.67 mm slide thickness. Data was reviewed interactively on an advanced workstation capable of 2 and 3-dimensional displays in all conventional reconstruction formats, including multiplanar reformations, maximum intensity projections, curved multiplanar reformations, and volume rendered reconstructions. When applicable, selected routine images describing the relevant coronary anatomy and pathology were saved and sent to PACS. Complications None Technical Quality Overall image quality was good. Coronary artery opacification was adequate. Total DLP (Dose-Length Product) is 1375.8 mGy-cm. The reported value represents the total of one or more individual components during the CT acquisition of this date and at this time, and as such, the same value may appear in more than one CT report depending on the interpreting/reporting physicians. COMPARISON None FINDINGS CT Coronary Calcium Scoring LMA (Left Main Artery) = 0 LAD (Left Anterior Descending) = 0 LCX (Left Coronary Circumflex) = 0 RCA (Right Coronary Artery) = 0 Total Calcium Score = 0 using the AJ-130 method. The interpretation of the calcium heart score is based on the following continuum*: 0 = no calcified plaque detected (risk of coronary artery disease is very low ??? less than 5%) 1-10 = calcium detected in extremely minimal levels (risk of coronary diseases is still low ??? less than 10%) 11-100 = mild levels of plaque detected with certainty (mild or minimal narrowing of heart arteries is likely) 101-400 = definite,at least moderate levels of plaque detected (relatively high risk of a heart attack within 3-5 years) >401-999 = extensive levels of plaque detected (high risk of heart attack, high levels of vascular disease are present, high likelihood of at least one significant coronary narrowing) *The calcium heart score quantifies the burden of coronary calcification/plaque in the coronary arteries. The calcium heart score is not able to evaluate the presence or burden of non-calcified (i.e. soft) plaque. There is no identifiable calcification in the aortic valve, mitral annulus or mitral valve, pericardium, or myocardium. Coronary CT Angiography Coronaries have normal origin and proximal course. The coronary arterial system is right dominant. Note: Stenosis is reported as maximum percentage diameter stenosis. Quantitative Stenosis Grading: Left Main (LM): The left main originates normally from the left sinus of Valsalva. The LM trifurcates into the left anterior descending artery, ramus intermedius, and left circumflex artery. The LM is patent with no evidence of atherosclerosis. Left Anterior Descending (LAD) and Diagonal B
[2023-01-24 09:12] VITALS: BP 122/67; PULSE 60; RESP 18; TEMP 37; O2SAT 99; BMI 24.0
[2023-01-24 09:30] VITALS: BP 134/91; PULSE 61
--- NOTE | 2023-01-24 09:30 | PC.NURSE ---
Arrived to CT, VSS, Nitro 0.8mg SL given per CTA standing orders
[2023-01-24 09:33] VITALS: BP 135/48
--- NOTE | 2023-01-24 09:33 | PC.NURSE ---
post nitro BP 135/48
[2023-01-24 09:38] VITALS: BP 114/73; PULSE 59
--- NOTE | 2023-01-24 09:38 | PC.NURSE ---
CTA complete, VSS, transported to post op for recovery, report to Nevin Clay RN
[2023-01-24 09:43] VITALS: BP 115/72; PULSE 60; RESP 18; TEMP 36.2; O2SAT 100
[2023-01-24 09:58] VITALS: BP 114/72; PULSE 60; RESP 17; O2SAT 99
== END | disposition home or self-care (01) ==
PROVIDERS: Visit Provider Nurse Practitioner Family
DX: R07.9 Chest pain, unspecified (principal); I10 Essential (primary) hypertension; R60.0 Localized edema
CPT/HCPCS: 75574; Q9967

== ENCOUNTER 2023-03-14 09:11 | Emergency (ER) | payer BC, SELFPAY ==
[2023-03-14 09:30] VITALS: BP 131/77; PULSE 61; RESP 18; TEMP 37.1; O2SAT 97; BMI 24.0
--- NOTE | 2023-03-14 10:00 | EXP.UTC ---
Discharge Plan Disposition Patient Disposition: Home, Self-Care Condition: Good Prescriptions Prescriptions: No Action bisoprolol fumarate 5 mg tablet 5 mg PO DAILY Qty: 30 5RF trazodone 50 mg tablet 50 mg PO HS PRN (Reason: .) Patient Comments: TAKE 1 TO 2 TABLETS BY MOUTH EVERY DAY AT BEDTIME NEEDED FOR SLEEP oxybutynin chloride 10 mg tablet extended release 24hr 10 mg PO DAILY Patient Comments: TAKE 1 TABLET BY MOUTH ONCE DAILY Referrals Follow up/Referrals: Provider,Referral, MD [Primary Care Provider] - See instructions Activity Restrictions/Add. Instructions Additional Instructions/Restrictions: *Monitor Temp, Over the counter Motrin or Tylenol as directed/as needed Tylenol every 4 hours and Motrin every 6 hours (as long as your family doctor has told you that you can take it) for fever or pain. and straight to ER if unable to lower temp less than 101.0 after medication given *Warm salt water gargles may help to soothe the throat *Throat Lozenges? *Warm fluids like tea with honey may help to soothe the throat? *Sleep elevated *Humidifier/Vaporizer Follow up IMMEDIATELY for new or worsening symptoms or no Noticeable improvement over the next 48-72 hours. 911 for difficulty breathing or swallowing You were tested for today for COVID19 your test result should be back in the next 24hours, you may check your results on the [facility] [employer] [facility] Portal If your COVID test is positive you must Quarantine for 5 days Clinical Impressions Clinical Impression: Viral syndrome Stand Alone Forms Stand Alone Forms: Work/School Release Instructions Patient Instructions: DI for COVID-19 (Suspected or Confirmed ) Discharge ED Provider: Eliza Craig [facility] HPI General Stated complaint: pos covid test,congestion, cough, sore throat, h/a Mode of Arrival: Ambulatory Source of Information: Patient Limitations: No Limitations Time Seen by Provider: 03/14/23 10:00 Description of Symptoms (Recalled from Triage Doc. by RN): tested positive for covid at home. Her symptoms are EDWARDS, congestions, and body aches. HEENT Symptoms (Recalled from RN notes): No Resp Symptoms (Recalled from RN notes): No Skin Symptoms (Recalled from RN notes): No MS Symptoms (Recalled from RN notes): No Functional Status (Recalled from RN notes): n/a History of Present Illness Provider Complaint: Patient states that she started feeling bad yesterday States that she has been having bodyaches, chills, and headache since yesterday States that body aches got worse last night and this morning she took home COVID test and it was positive So she had to come in and get tested for Work to have a positive test from clinic Related Data Home Medications Medication Instructions Recorded Confirmed oxybutynin chloride 10 mg 10 mg PO DAILY . 06/02/22 03/14/23 tablet,extended release 24 hr trazodone 50 mg tablet 50 mg PO HS PRN . 06/02/22 03/14/23 Previous Rx's Medication Instructions Recorded bisoprolol fumarate 5 mg tablet 5 mg PO DAILY #30 tabs 08/19/22 Allergies Allergy/AdvReac Type Severity Reaction Status Date / Time No Known Drug Allergies Allergy Verified 03/14/23 09:45 Worker's Comp Is this a Worker's Comp case?: No [facility] Disclaimer: The information contained in this section may have been updated after the patient was seen, as this information can be updated by other users. Medical History Chest pain Fluctuating blood pressure HTN (hypertension) Symptomatic bradycardia Tachy-luz marina syndrome Surgical History History of hysterectomy History of tubal ligation Family History Other No significant family history Social History Smoking Status: Never smoker
[2023-03-14 10:10] VITALS: BP 131/77; PULSE 61; RESP 18; TEMP 37.1; O2SAT 97
== END 2023-03-14 10:10 | disposition home or self-care (01) ==
PROVIDERS: Emergency Provider Nurse Practitioner
DX: U07.1 COVID-19 (principal); R51.9 Headache, unspecified; R07.0 Pain in throat; R50.9 Fever, unspecified; M79.18 Myalgia, other site; R05.9 Cough, unspecified; R09.81 Nasal congestion; I10 Essential (primary) hypertension; I49.5 Sick sinus syndrome
CPT/HCPCS: 87635; 99212; 99214; G0463

== ENCOUNTER 2023-05-31 13:17 | Outpatient (CLI) | payer BC, SELFPAY ==
[2023-05-31 13:21] LABS: Basophils % 0.7 % (0.1-2.0); Eosinophils # 0.1 K/mm3 (0.0-0.4); Eosinophils % 1.8 % (0.1-12.0); Hematocrit 42.7 % (37.0-47.0); Hemoglobin 13.6 g/dL (12.2-16.2); Lymphocytes # 1.5 K/mm3 (0.7-4.5); Lymphocytes % 30.3 % (10-50); Mean Corpuscular HGB Conc 31.8 g/dL (31.8-35.4); Mean Corpuscular Hemoglobin 31.2 pg (27.0-31.2); Mean Platelet Volume 8.2 fl (7.4-10.4); Monocytes # 0.4 K/mm3 (0.1-1.0); Monocytes % 8.6 % (1.7-9.3); Neutrophils % 58.6 % (37.0-80.0); Platelet Count 238 K/mm3 (142-424); Red Blood Count 4.36 M/mm3 (4.20-5.40); White Blood Count 5.1 K/mm3 (4.8-10.8)
[2023-05-31 13:33] LABS: Alanine Aminotransferase 40 U/L (12-78); Albumin Level 4.6 g/dl (3.5-5.0); Albumin/Globulin Ratio 1.8 (1.1-1.8); Alkaline Phosphatase 104 U/L (38-126); Aspartate Amino Transferase 36 U/L (14-36); Bilirubin,Total 0.4 mg/dl (0.2-1.3); Blood Urea Nitrogen 15 mg/dl (7-17); Calcium 9.5 mg/dl (8.4-10.2); Carbon Dioxide 28 mmol/L (22.0-30.0); Chloride 106 mmol/L (98-107); Estimated Glomerular Filt Rate 87 ml/min (>60); GFR (African American) 106 ML/MIN (>60); Globulin 2.5 g/dL (1.3-3.2); Glucose 89 mg/dl (74-100); Magnesium 2.2 mg/dl (1.6-2.3); Sodium 142 mmol/L (136-145); Total Protein,Serum 7.1 g/dl (6.3-8.2)
[2023-05-31 13:55] LABS: 25-OH Vitamin D, Total 50.5 ng/mL (30-100)
[2023-05-31 14:07] LABS: Thyroid Stimulating Hormone 1.89 uIU/mL (0.465-4.68)
[2023-05-31 14:26] LABS: Vitamin B12 581 pg/mL (239-931)
[2023-05-31 16:04] LABS: Ferritin 38.1 ng/ml (11.1-264)
== END 2023-05-31 23:59 ==
LOC: LAB.DROPOF 13:17
PROVIDERS: PCP Nurse Practitioner Family; Visit Provider Nurse Practitioner Family
DX: I10 Essential (primary) hypertension (principal); I49.5 Sick sinus syndrome; R53.83 Other fatigue; M62.838 Other muscle spasm
CPT/HCPCS: 80053; 82306; 82607; 82728; 83735; 84443; 85025

== ENCOUNTER 2023-09-19 10:14 | Outpatient (CLI) | payer BC, SELFPAY ==
--- NOTE | 2023-09-19 10:26 | US_ITS ---
FINAL REPORT TECHNIQUE: Real-time grayscale and color ultrasound of the thyroid was performed. CLINICAL HISTORY: Swelling left side of neck COMPARISON: None FINDINGS: The thyroid gland is normal in size measuring 49 x 12 x 13 mm on the right and 48 x 10 x 13 mm on the left. The isthmus measures 2 mm. The parenchyma is unremarkable . Nodules: There are numerous lesions, all benign appearing cysts except for a solid right thyroid isthmus nodule which is isoechoic measuring 7 x 3 x 5 mm and most likely benign based on morphology and size. IMPRESSION: Benign appearing nodules as above. No additional follow-up considered warranted per TI-RADS criteria. Reviewed, Interpreted and Dictated by Kenny Rosenbaum MD Transcribed by Yessenia Mims Authenticated and [facility]
== END 2023-09-19 23:59 | disposition home or self-care (01) ==
LOC: RAD 10:15
PROVIDERS: PCP Nurse Practitioner Family; Visit Provider Nurse Practitioner
DX: R22.1 Localized swelling, mass and lump, neck (principal)
CPT/HCPCS: 76536

== ENCOUNTER 2023-09-23 15:41 | Outpatient (CLI) | payer BC, SELFPAY ==
[2023-09-23 13:33] LABS: Basophils # 0.1 K/mm3 (0-0.2); Basophils % 1.1 % (0.1-2.0); Eosinophils # 0.1 K/mm3 (0.0-0.4); Eosinophils % 2.2 % (0.1-12.0); Hematocrit 44.6 % (37.0-47.0); Hemoglobin 14.3 g/dL (12.2-16.2); Lymphocytes # 1.8 K/mm3 (0.7-4.5); Mean Corpuscular HGB Conc 32.2 g/dL (31.8-35.4); Mean Corpuscular Hemoglobin 30.7 pg (27.0-31.2); Mean Corpuscular Volume 95.5 fl (81-99); Mean Platelet Volume 7.6 fl (7.4-10.4); Monocytes # 0.3 K/mm3 (0.1-1.0); Monocytes % 6.7 % (1.7-9.3); Neutrophils # 2.8 K/mm3 (1.8-7.8); Neutrophils % 55.1 % (37.0-80.0); Platelet Count 281 K/mm3 (142-424); Red Blood Count 4.67 M/mm3 (4.20-5.40); Red Cell Distribution Width 12.6 % (11.5-17.5)
[2023-09-23 14:39] LABS: Alanine Aminotransferase 104 U/L (12-78); Albumin Level 4.4 g/dl (3.5-5.0); Albumin/Globulin Ratio 1.6 (1.1-1.8); Alkaline Phosphatase 109 U/L (38-126); Anion Gap 12.1 mEq/L (5-15); Aspartate Amino Transferase 62 U/L (14-36); Bilirubin,Total 0.4 mg/dl (0.2-1.3); Blood Urea Nitrogen 20 mg/dl (7-17); Calcium 9.7 mg/dl (8.4-10.2); Carbon Dioxide 32 mmol/L (22.0-30.0); Chloride 101 mmol/L (98-107); Chol/HDL Ratio 3.7 (1-3.5); Cholesterol 218 mg/dl (140-200); Estimated Glomerular Filt Rate 65 ml/min (>60); GFR (African American) 79 ML/MIN (>60); Globulin 2.7 g/dL (1.3-3.2); Glucose 84 mg/dl (74-100); HDL Cholesterol 59 mg/dl (40-60); Magnesium 2.4 mg/dl (1.6-2.3); Potassium 4.1 mmoL/L (3.5-5.1); Sodium 141 mmol/L (136-145); Total Protein,Serum 7.1 g/dl (6.3-8.2); Triglycerides 153 mg/dl (30-150); VLDL Cholesterol 31 mg/dL (0-40)
[2023-09-23 14:50] LABS: Direct LDL Cholesterol 112.37 mg/dL (100-129)
[2023-09-23 14:55] LABS: 25-OH Vitamin D, Total 64.4 ng/mL (30-100)
[2023-09-23 14:59] LABS: T4 (Thyroxine) 10.2 ug/dl (5.53-11.0)
[2023-09-23 15:13] LABS: Thyroid Stimulating Hormone 2.96 uIU/mL (0.465-4.68)
[2023-09-23 15:32] LABS: Vitamin B12 518 pg/mL (239-931)
[2023-09-23 16:56] LABS: Free T4 (Free Thyroxine) 1.23 ng/dl (0.78-2.19)
[2023-09-23 17:15] LABS: Ferritin 38.7 ng/ml (11.1-264)
[2023-09-25 07:49] LABS: Thyroid Peroxidase Antibodies 9 IU/mL (0-34); Triiodothyronine (T3) Free 3.2 pg/mL (2.0-4.4)
[2023-09-26 16:12] LABS: Thyroglobulin Level <1.0 IU/mL (0.0-0.9)
== END 2023-09-23 23:59 | disposition home or self-care (01) ==
LOC: LAB.DROPOF 15:41
PROVIDERS: PCP Nurse Practitioner Family; Visit Provider Nurse Practitioner Family
DX: I10 Essential (primary) hypertension (principal); R51.9 Headache, unspecified; R26.81 Unsteadiness on feet; I49.5 Sick sinus syndrome; E04.1 Nontoxic single thyroid nodule; R53.83 Other fatigue
CPT/HCPCS: 80050; 80053; 80061; 82306; 82607; 82728; 83735; 84436; 84439; 84443; 84481; 85025; 86376; 86800

== ENCOUNTER 2023-10-03 12:44 | Outpatient (CLI) | payer BC, SELFPAY ==
[2023-10-03 13:27] LABS: Alanine Aminotransferase 47 U/L (12-78); Albumin Level 4.6 g/dl (3.5-5.0); Albumin/Globulin Ratio 1.6 (1.1-1.8); Alkaline Phosphatase 105 U/L (38-126); Anion Gap 8.6 mEq/L (5-15); Aspartate Amino Transferase 35 U/L (14-36); Bilirubin,Total 0.6 mg/dl (0.2-1.3); Blood Urea Nitrogen 15 mg/dl (7-17); Calcium 9.9 mg/dl (8.4-10.2); Carbon Dioxide 32 mmol/L (22.0-30.0); Chloride 105 mmol/L (98-107); Estimated Glomerular Filt Rate 87 ml/min (>60); GFR (African American) 106 ML/MIN (>60); Globulin 2.8 g/dL (1.3-3.2); Glucose 85 mg/dl (74-100); Potassium 4.6 mmoL/L (3.5-5.1); Sodium 141 mmol/L (136-145); Total Protein,Serum 7.4 g/dl (6.3-8.2)
== END 2023-10-03 23:59 | disposition home or self-care (01) ==
LOC: LAB.DROPOF 12:45
PROVIDERS: PCP Nurse Practitioner Family; Visit Provider Nurse Practitioner Family
DX: R74.8 Abnormal levels of other serum enzymes (principal)
CPT/HCPCS: 80053

== ENCOUNTER 2023-10-07 11:22 | Outpatient (CLI) | payer BC, SELFPAY ==
[2023-10-07 11:43] LABS: D-Dimer 0.43 ug/mL (0.0-0.5)
[2023-10-07 12:06] LABS: C-Reactive Protein 0.6 mg/L (0-4)
[2023-10-09 17:04] LABS: Magnesium,RBC 5.4 mg/dL (3.7-7.0)
[2023-11-14 12:16] LABS: Antinuclear Antibodies (ANA) NEGATIVE
== END 2023-10-07 23:59 | disposition home or self-care (01) ==
LOC: LAB.DROPOF 11:22
PROVIDERS: PCP Nurse Practitioner Family; Visit Provider Nurse Practitioner Family
DX: R26.81 Unsteadiness on feet (principal); R22.1 Localized swelling, mass and lump, neck; I49.5 Sick sinus syndrome; N39.0 Urinary tract infection, site not specified
CPT/HCPCS: 83735; 85378; 86038; 86140; 86225; 86235; 87086

== ENCOUNTER 2023-10-12 12:17 | Outpatient (CLI) | payer BC, SELFPAY | END 2023-10-12 23:59 | disposition home or self-care (01) | LOC: LAB.DROPOF 12:17 | PROVIDERS: PCP Nurse Practitioner Family; Visit Provider Nurse Practitioner Family | DX: N39.0 Urinary tract infection, site not specified (principal) | CPT/HCPCS: 87086 ==

== ENCOUNTER 2023-10-18 09:21 | Outpatient (CLI) | payer BC, SELFPAY ==
--- NOTE | 2023-10-18 09:28 | CT_ITS ---
FINAL REPORT TECHNIQUE: Thin section axial CT images with coronal and sagittal reformats were performed through the neck. This study was performed with techniques to keep radiation doses as low as reasonably achievable (ALARA). Individualized dose reduction techniques using automated exposure control or adjustment of mA and/or kV according to the patient''s size were employed. CLINICAL HISTORY: left sided neck swelling COMPARISON: None FINDINGS: Soft tissue assessment is limited without the administration of intravenous contrast. No adenopathy or mass lesion is present . Salivary glands are normal. Larynx is unremarkable. Thyroid gland is unremarkable. IMPRESSION: No acute process. Soft tissue assessment is limited without the administration of intravenous contrast. Reviewed, Interpreted and Dictated by Kenny Rosenbaum MD Transcribed by Kelsey Peck Authenticated and [facility]
--- NOTE | 2023-10-18 09:29 | CT_ITS ---
FINAL REPORT TECHNIQUE: Axial images through the chest was performed by computed tomography. Sagittal and coronal reformatted images were obtained and reviewed. This study was performed with techniques to keep radiation doses as low as reasonably achievable (ALARA). Individualized dose reduction techniques using automated exposure control or adjustment of mA and/or kV according to the patient's size were employed. CLINICAL HISTORY: daily frontal headaches, unsteadiness FINDINGS: No abnormal density is seen. Ventricles are normal. There is no hemorrhage. No mass effect is seen. Bone windows show no evidence of fracture. IMPRESSION: No acute findings Reviewed, Interpreted and Dictated by Kenny Rosenbaum MD Transcribed by Uzma Montalvo Authenticated and [facility]
== END 2023-10-18 23:59 | disposition home or self-care (01) ==
LOC: RAD 09:23
PROVIDERS: PCP Nurse Practitioner Family; Visit Provider Nurse Practitioner Family
DX: R22.1 Localized swelling, mass and lump, neck (principal); R51.9 Headache, unspecified; R26.81 Unsteadiness on feet
CPT/HCPCS: 70450; 70490

== ENCOUNTER 2023-11-04 14:03 | Outpatient (CLI) | payer BC, SELFPAY ==
[2023-11-04 13:36] LABS: Albumin Level 4.6 g/dl (3.5-5.0)
[2023-11-04 13:39] LABS: Alanine Aminotransferase 85 U/L (12-78); Alkaline Phosphatase 118 U/L (38-126); Aspartate Amino Transferase 50 U/L (14-36); Bilirubin,Direct 0.3 mg/dl (0.0-0.4); Bilirubin,Indirect 0.2 mg/dL (0.0-0.9); Bilirubin,Total 0.5 mg/dl (0.2-1.3); Bilirubin,Unconjugated 0.3 mg/dL (0.0-1.1); Total Protein,Serum 7.3 g/dl (6.3-8.2)
[2023-11-18 09:34] LABS: Antinuclear Antibodies (ANA) NEGATIVE
== END 2023-11-04 23:59 | disposition home or self-care (01) ==
LOC: LAB.DROPOF 14:04
PROVIDERS: PCP Nurse Practitioner Family; Visit Provider Nurse Practitioner Family
DX: R74.8 Abnormal levels of other serum enzymes (principal); I49.5 Sick sinus syndrome; R53.83 Other fatigue
CPT/HCPCS: 80076; 86038

== ENCOUNTER 2023-11-09 09:40 | Day surgery (SDC) | payer BC, SELFPAY ==
[2023-11-09 09:54] VITALS: BP 138/86; PULSE 64; RESP 18; TEMP 36.2; O2SAT 100
--- NOTE | 2023-11-09 12:00 | EXP.TILT ---
Findings:: PROCEDURE: Tilt Table Test REQUESTING PROVIDER: Stella Landa APRN INDICATION: Signs of inappropriate tachycardia BETA BLOCKERS: None PRETEST VITAL SIGNS (supine position): BP 139/79, HR 66 and sinus rhythm, O2 Sats 100% PROCEDURE SUMMARY: Patient was prepped per protocol, IV started, connected to heart, blood pressure, and oxygen saturation monitors. Safety straps were applied and she was then tilted upright at 70 degrees for a total of 30 minutes. She was asymptomatic until 20 minutes into the test when she complained of cold hands and feet. Her blood pressure was 154/107 and heart rate 89 bpm at this time. At the end of her time upright, just prior to being returned to the supine position, she complained of feeling hot with palpitations, general malaise and fatigue from prolonged standing. Blood pressure was 139/102 and HR 90s to 110 bpm at this time. A few minutes after being returned to the supine position she reported a headache with a BP of 146/87 and HR in mid 60s. Her systolic BP stayed in the 140s for the first 15 minutes of being upright, then cricket to 154 mmHg after 20 minutes. Five minutes later the BP had risen further, to 165 mmHg. Then, five minutes later, at test completion, it had dropped to 139 mmHg. After being returned to the supine position her systolic BP ranged between 135 to 146 mmHg. Her diastolic BP cricket to 101 mmHg after being raised upright and then ranged between 96 and 107 mmHg for the rest of her time upright. After being returned to the supine position her diastolic BP stayed between 80 and 91 mmHg. Heart rate cricket to 84 bpm shortly after being placed upright, and stayed in the 80s for the first 15 minutes. After that her HR started fluctuating between 60 and 90 bpm and at the end of her time upright, the HR got as high as 110 bpm. After returning to the supine position the HR returned to the low 60s. Her heart rhythm was normal sinus throughout the test. O2 sats remained 99 - 100%. CONCLUSIONS: Evidence of diastolic orthostatic hypertension with a greater than 20 mmHg increase in DBP from the supine to standing position. Significant, symptomatic heart rate variability after prolonged standing.
== END 2023-11-09 11:40 | disposition home or self-care (01) ==
PROVIDERS: PCP Nurse Practitioner Family; Visit Provider Internal Medicine
DX: I10 Essential (primary) hypertension (principal); I47.19 Other supraventricular tachycardia
CPT/HCPCS: 93660

== ENCOUNTER 2023-12-07 11:19 | Outpatient (CLI) | payer BC, SELFPAY ==
[2023-12-07 13:55] LABS: Alanine Aminotransferase 58 U/L (12-78); Albumin Level 4.1 g/dl (3.5-5.0); Albumin/Globulin Ratio 1.4 (1.1-1.8); Alkaline Phosphatase 100 U/L (38-126); Anion Gap 8.7 mEq/L (5-15); Aspartate Amino Transferase 39 U/L (14-36); Bilirubin,Total 0.4 mg/dl (0.2-1.3); Blood Urea Nitrogen 9 mg/dl (7-17); Calcium 9.3 mg/dl (8.4-10.2); Carbon Dioxide 30 mmol/L (22.0-30.0); Chloride 107 mmol/L (98-107); Estimated Glomerular Filt Rate 104 ml/min (>60); GFR (African American) 126 ML/MIN (>60); Glucose 92 mg/dl (74-100); Potassium 4.7 mmoL/L (3.5-5.1); Sodium 141 mmol/L (136-145); Total Protein,Serum 7.1 g/dl (6.3-8.2)
== END 2023-12-07 23:59 | disposition home or self-care (01) ==
LOC: LAB.DROPOF 12-08 08:59
PROVIDERS: PCP Nurse Practitioner Family; Visit Provider Nurse Practitioner Family
DX: R74.8 Abnormal levels of other serum enzymes (principal)
CPT/HCPCS: 80053

== ENCOUNTER 2024-02-27 13:51 | Outpatient (CLI) | payer BC, SELFPAY ==
[2024-02-27 13:48] LABS: Alanine Aminotransferase 52 U/L (12-78); Albumin Level 4.4 g/dl (3.5-5.0); Albumin/Globulin Ratio 1.8 (1.1-1.8); Alkaline Phosphatase 101 U/L (38-126); Aspartate Amino Transferase 40 U/L (14-36); Bilirubin,Total 0.6 mg/dl (0.2-1.3); Blood Urea Nitrogen 12 mg/dl (7-17); Calcium 9.2 mg/dl (8.4-10.2); Carbon Dioxide 29 mmol/L (22.0-30.0); Chloride 104 mmol/L (98-107); Chol/HDL Ratio 3.3 (1-3.5); Cholesterol 204 mg/dl (140-200); Estimated Glomerular Filt Rate 104 ml/min (>60); GFR (African American) 126 ML/MIN (>60); Globulin 2.5 g/dL (1.3-3.2); Glucose 83 mg/dl (74-100); HDL Cholesterol 62 mg/dl (40-60); Magnesium 2.1 mg/dl (1.6-2.3); Sodium 141 mmol/L (136-145); Total Protein,Serum 6.9 g/dl (6.3-8.2); Triglycerides 133 mg/dl (30-150); VLDL Cholesterol 27 mg/dL (0-40)
[2024-02-27 13:59] LABS: Direct LDL Cholesterol 100.94 mg/dL (100-129)
[2024-02-27 14:10] LABS: Anion Gap 12.2 mEq/L (5-15); Potassium 4.2 mmoL/L (3.5-5.1)
[2024-02-27 14:19] LABS: Thyroid Stimulating Hormone 2.83 uIU/mL (0.465-4.68)
[2024-02-27 14:38] LABS: Vitamin B12 501 pg/mL (239-931)
[2024-02-28 11:12] LABS: Antinuclear Antibodies (ANA) Negative (Negative)
== END 2024-02-27 23:59 | disposition home or self-care (01) ==
LOC: LAB.DROPOF 13:51
PROVIDERS: PCP Nurse Practitioner Family; Visit Provider Nurse Practitioner Family
DX: I49.5 Sick sinus syndrome (principal); G90.9 Disorder of the autonomic nervous system, unspecified; R74.8 Abnormal levels of other serum enzymes; I10 Essential (primary) hypertension
CPT/HCPCS: 80053; 80061; 82607; 83735; 84443; 86038

== ENCOUNTER 2024-04-03 11:56 | Outpatient (CLI) | payer BC, SELFPAY ==
[2024-04-03 12:35] LABS: Basophils % 0.3 % (0.1-2.0); Eosinophils # 0.1 K/mm3 (0.0-0.4); Eosinophils % 2.1 % (0.1-12.0); Hematocrit 43.1 % (37.0-47.0); Hemoglobin 14.2 g/dL (12.2-16.2); Lymphocytes # 1.6 K/mm3 (0.7-4.5); Lymphocytes % 28.4 % (10-50); Mean Corpuscular HGB Conc 32.9 g/dL (31.8-35.4); Mean Corpuscular Hemoglobin 29.9 pg (27.0-31.2); Mean Corpuscular Volume 90.7 fl (81-99); Mean Platelet Volume 10.4 fl (7.4-10.4); Monocytes # 0.4 K/mm3 (0.1-1.0); Monocytes % 6.8 % (1.7-9.3); Neutrophils # 3.6 K/mm3 (1.8-7.8); Neutrophils % 62.2 % (37.0-80.0); Platelet Count 288 K/mm3 (142-424); Red Blood Count 4.75 M/mm3 (4.20-5.40); Red Cell Distribution Width 11.7 % (11.5-17.5); White Blood Count 5.7 K/mm3 (4.8-10.8)
[2024-04-03 12:57] LABS: Alanine Aminotransferase 45 U/L (12-78); Albumin Level 4.7 g/dl (3.5-5.0); Albumin/Globulin Ratio 2.2 (1.1-1.8); Alkaline Phosphatase 103 U/L (38-126); Anion Gap 11.6 mEq/L (5-15); Aspartate Amino Transferase 40 U/L (14-36); Bilirubin,Total 0.5 mg/dl (0.2-1.3); Blood Urea Nitrogen 19 mg/dl (7-17); Calcium 9.8 mg/dl (8.4-10.2); Carbon Dioxide 30 mmol/L (22.0-30.0); Chloride 104 mmol/L (98-107); Estimated Glomerular Filt Rate 74 ml/min (>60); GFR (African American) 90 ML/MIN (>60); Globulin 2.1 g/dL (1.3-3.2); Glucose 86 mg/dl (74-100); Potassium 4.6 mmoL/L (3.5-5.1); Sodium 141 mmol/L (136-145); Total Protein,Serum 6.8 g/dl (6.3-8.2)
[2024-04-05 00:08] LABS: Zinc 78 ug/dL (44-115)
[2024-04-05 03:41] LABS: Magnesium,RBC 5.3 mg/dL (3.7-7.0)
[2024-04-05 17:22] LABS: Vitamin B1 155.3 nmol/L (66.5-200.0)
[2024-04-08 16:08] LABS: Vitamin B6 12.7 ug/L (3.4-65.2)
== END 2024-04-03 23:59 | disposition home or self-care (01) ==
LOC: LAB 11:56
PROVIDERS: PCP Nurse Practitioner Family; Visit Provider Nurse Practitioner Family
DX: R74.8 Abnormal levels of other serum enzymes (principal); G90.9 Disorder of the autonomic nervous system, unspecified
CPT/HCPCS: 36415; 80053; 82525; 83735; 84207; 84425; 84630; 85025

== ENCOUNTER 2024-04-23 10:27 | Outpatient (CLI) | payer BC, SELFPAY ==
--- NOTE | 2024-04-23 10:28 | CT_ITS ---
FINAL REPORT TECHNIQUE: CT of the head was performed after the administration of intravenous contrast using axial images from the foramen magnum through the calvarium. This study was performed with techniques to keep radiation doses as low as reasonably achievable (ALARA). Individualized dose reduction techniques using automated exposure control or adjustment of mA and/or kV according to the patient's size were employed. CLINICAL HISTORY: Venous distention, swelling COMPARISON: 10/18/2023 FINDINGS: CT HEAD WITH CONTRAST: The ventricles are normal in size and configuration. No extra-axial fluid collections are identified. No mass effect or midline shift are noted. No foci of abnormal parenchymal density are seen. The paranasal sinuses are well aerated. IMPRESSION: Unremarkable CT of the head with contrast. Reviewed, Interpreted and Dictated by Aryan Perez MD Transcribed by Kelsey Peck Authenticated and [facility]
[2024-04-23] MEDS: IOPAMIDOL-370 (76%);100ML BOTTLE 90 ML IV (10:59)
[2024-04-23] MEDS: SODIUM CHLORIDE 0.9% 10ML SYR (RAD ONLY) 10 ML IV (10:59)
[2024-04-23] MEDS: 0.9 % SODIUM CHLORIDE 50 ML VIAL IV (10:59)
== END 2024-04-23 23:59 | disposition home or self-care (01) ==
LOC: RAD 10:28
PROVIDERS: PCP Nurse Practitioner Family; Visit Provider Nurse Practitioner Family
DX: R09.89 Other specified symptoms and signs involving the circulatory and respiratory systems (principal); R42 Dizziness and giddiness; R26.81 Unsteadiness on feet
CPT/HCPCS: 70496; Q9967

== ENCOUNTER 2024-05-04 11:03 | Outpatient (CLI) | payer BC, SELFPAY ==
[2024-05-04 13:17] LABS: Basophils % 0.6 % (0.1-2.0); Eosinophils # 0.1 K/mm3 (0.0-0.4); Eosinophils % 1.7 % (0.1-12.0); Hematocrit 41.2 % (37.0-47.0); Hemoglobin 13.3 g/dL (12.2-16.2); Lymphocytes # 1.9 K/mm3 (0.7-4.5); Lymphocytes % 35.4 % (10-50); Mean Corpuscular HGB Conc 32.3 g/dL (31.8-35.4); Mean Platelet Volume 10.7 fl (7.4-10.4); Monocytes # 0.5 K/mm3 (0.1-1.0); Monocytes % 8.4 % (1.7-9.3); Neutrophils # 2.9 K/mm3 (1.8-7.8); Neutrophils % 53.7 % (37.0-80.0); Platelet Count 271 K/mm3 (142-424); Red Blood Count 4.43 M/mm3 (4.20-5.40); Red Cell Distribution Width 11.9 % (11.5-17.5); White Blood Count 5.5 K/mm3 (4.8-10.8)
[2024-05-04 13:34] LABS: Albumin Level 4.7 g/dl (3.5-5.0); Chloride 104 mmol/L (98-107); Potassium 4.8 mmoL/L (3.5-5.1); Sodium 143 mmol/L (136-145)
[2024-05-04 13:36] LABS: Blood Urea Nitrogen 17 mg/dl (7-17); Estimated Glomerular Filt Rate 65 ml/min (>60); GFR (African American) 79 ML/MIN (>60)
[2024-05-04 13:37] LABS: Alanine Aminotransferase 48 U/L (12-78); Albumin/Globulin Ratio 2.1 (1.1-1.8); Alkaline Phosphatase 106 U/L (38-126); Anion Gap 14.8 mEq/L (5-15); Aspartate Amino Transferase 39 U/L (14-36); Bilirubin,Total 0.4 mg/dl (0.2-1.3); Calcium 9.6 mg/dl (8.4-10.2); Carbon Dioxide 29 mmol/L (22.0-30.0); Globulin 2.2 g/dL (1.3-3.2); Glucose 82 mg/dl (74-100); Magnesium 2.2 mg/dl (1.6-2.3); Total Protein,Serum 6.9 g/dl (6.3-8.2)
[2024-05-04 14:07] LABS: Thyroid Stimulating Hormone 3.13 uIU/mL (0.465-4.68)
== END 2024-05-04 23:59 | disposition home or self-care (01) ==
LOC: RT 11:03
PROVIDERS: PCP Nurse Practitioner Family; Visit Provider Nurse Practitioner Family
DX: I49.9 Cardiac arrhythmia, unspecified (principal); R06.02 Shortness of breath
CPT/HCPCS: 80053; 83735; 84443; 85025; 93225; 93227

== ENCOUNTER 2024-05-10 12:16 | Outpatient (CLI) | payer BC, SELFPAY | END 2024-05-10 23:59 | disposition home or self-care (01) | LOC: LAB.DROPOF 05-11 09:53 | PROVIDERS: PCP Student in an Organized Health Care Education/Training Program; Visit Provider Student in an Organized Health Care Education/Training Program | DX: N39.0 Urinary tract infection, site not specified (principal) | CPT/HCPCS: 87086; 87088; 87186 ==

== ENCOUNTER 2024-05-16 07:53 | Day surgery (SDC) | payer BC, SELFPAY ==
[2024-05-14 17:22] VITALS: BMI 26.2
[2024-05-16 08:55] VITALS: BP 129/74; PULSE 65; RESP 18; TEMP 36.9; O2SAT 98
[2024-05-16] MEDS: LACTATED RINGERS 1000ML 1,000 ML 50 ML IV (09:04)
--- NOTE | 2024-05-16 09:46 | EXP.HP ---
History of Present Illness *Admission Date: 05/16/24 *Reason for visit:: Hiatal hernia/reflux and screening *History of present illness: Mrs. Cha is a 53-year-old female who is here for EGD and colonoscopy. The patient does have supine heartburn and reflux with recent CAT scan showing a hiatal hernia. Her last colonoscopy was in 2009 and she had colon polyps removed. The examination is deemed medically necessary for EGD and colonoscopy.. The patient has been seen, interviewed and examined prior to the procedure by both myself and the anesthesia provider. [facility] Disclaimer: The information contained in this section may have been updated after the patient was seen, as this information can be updated by other users. Medical History (Updated 05/16/24 @ 09:56 by Raj Austin II, MD) Pacemaker Neck swelling Chest pain Fluctuating blood pressure Symptomatic bradycardia HTN (hypertension) Tachy-luz marina syndrome Surgical History History of permanent cardiac pacemaker placement History of colonoscopy with polypectomy History of tubal ligation History of hysterectomy Family History Other No significant family history Social History (Updated 05/16/24 @ 08:56 by Kathryn Clay RN) Smoking Status: Never smoker alcohol intake: never substance use type: denies use current occupational status: employed Travel in the last 8 weeks: None household members: spouse housing: house current occupation: [id number] caffeine: Yes Have you lived/traveled outside [place] in past 30 days?: No Contact w/someone who lives/traveled outside US past 30 days?: No Exposure to someone with infectious disease in past 14 days?: No Do you have a fever (greater than 100.4 F or 38 C)?: No Have you tested positive for COVID-19: Yes Exposed to someone with COVID-19 in past 14 days?: No Do you have a sore throat?: No Do you have a cough?: No Do you have any weakness?: No Are you experiencing any nausea/vomitting?: No Do you have any diarrhea?: No Are you experiencing any unusual bleeding?: No Do you have any muscle aches/pain?: No Do you have any abdominal pain?: No Are you experiencing loss of taste or smell?: No Other Medical History Have you received the Flu Vaccine for this season: No Have you received the Pneumonia Vaccine: No Review of Systems Review of Systems Review of systems (narrative): Negative *Cardiovascular Comments: Negative *Gastrointestinal Comments: Negative *Genitourinary Comments: Negative *Musculoskeletal Comments: Negative *Neurologic Comments: Negative Meds Home Medications and Allergies Home Medications ?Medication ?Instructions ?Recorded ?Confirmed ?Type oxybutynin chloride 10 mg 10 mg PO DAILY #30 tabs 09/23/23 05/16/24 Rx tablet,extended release 24 hr clonidine HCl 0.1 mg tablet 0.1 mg PO BID PRN hypertensive 11/07/23 05/16/24 Rx emergency 30 days #60 tabs sodium,potassium,mag sulfates 17.5 See Rx Instructions PO .COMPLEX 05/04/24 05/16/24 Rx gram-3.13 gram-1.6 gram oral soln #354 mL (Suprep Bowel Prep Kit) nitrofurantoin 100 mg PO Q12H 7 days #14 caps 05/10/24 05/16/24 Rx monohydrate/macrocrystals 100 mg capsule New Prescriptions to Start Prescriptions: Allergies Allergy/AdvReac Type Severity Reaction Status Date / Time morphine Allergy Vomiting Verified 05/16/24 08:54 Exam Data for Last 24 hours Vital signs and Labs for Last 24 Hours: Temp Pulse Resp BP Pulse Ox O2 Del Method 98.5 F 65 18 129/74 98 Room Air 05/16/24 08:55 05/16/24 08:55 05/16/24 08:55 05/16/24 08:55 05/16/24 08:55 05/16/24 08:55 I & O for Last 24 hours: Intake & Output 05/13/24 05/14/24 05/15/24 05/16/24 23:59 23:59 23:59 23:59 Weight 153 lb *Routine HEENT Exam Head: Present normocephalic Eye: Present EOMI and PERRL ENT: Present mucous membranes moist *Routine Neck Exam Neck: Present supple *Routine Respiratory Exam Respiratory: Present CTA bilaterally *Routine Cardiovascular Exam Cardiovascular: Present RRR *Routine Abdominal Exam Abdominal: Present soft and normoactive bowel sounds; Absent tenderness *Routine Rectal Exam Rectal:: deferred *Routine Genitalia Exam Genitalia:: deferred *Routine Extremities Exam Extremities: Absent cyanosis, clubbing or edema *Routine Skin Exam Skin: Present warm; Absent rash *Routine Neurological Exam Neurological: Present alert and oriented X3 Assessment and Plan *Assessment and plan (1) Heartburn: Status: Acute Category: Medical Code(s): R12 - Heartburn (2) GERD (gastroesophageal reflux disease): Status: Acute Category: Medical Code(s): K21.9 - Gastro-esophageal reflux disease without esophagitis (3) Personal history of colon polyps, unspecified: Status: Acute Category: Medical Code(s): Z86.0100 - Personal history of colon polyps, unspecified Plan A/P: 1. Frequent heartburn/GERD for upper endoscopy and surveillance (history of colon polyps?unspecified) and last colonoscopy 14 years ago?for colonoscopy is the preprocedural diagnosis. The patient will be anesthetized/sedated using MAC sedation. The patient has been seen and examined. Cardiac and lung assessment prior to the examination is stable. Proceed with planned EGD and colonoscopy
[2024-05-16 09:53] VITALS: O2SAT 100
--- NOTE | 2024-05-16 09:57 | P.PCN_ITS ---
[facility] Procedure Note Date: 05/16/24 Time: 10:03 Procedure Note:: Upper Endoscopy Procedure Report: Esophagogastroduodenoscopy with cold biopsies Endoscopost: Raj Austin II, MD Referring Physician: KATHARINA Ramirez Date of Procedure: May 16, 2024 Equipment: Olympus GIF 190 standard upper endoscope Sedation: MAC sedation Indications: Mrs. Cha is a 53-year-old female who is here for upper endoscopy secondary to worsening heartburn and reflux. She is not on PPI therapy. The patient did have a recent CAT scan showing a hiatal hernia. She does state that sometimes the reflux will awaken her at nighttime. She reports no bloating, gassiness, belching, nausea, early satiety or dysphagia. This is her first upper endoscopy. Procedure: Prior to the procedure, a history and physical exam was performed, and patient's medications and allergies were reviewed. The risks, benefits and alternatives of the sedation and procedure were discussed with the patient. All questions were answered and informed consent was obtained. The patient was brought to the procedure room. Patient identification and proposed procedure were verified by the physician and the nurse. The patient was placed in a left lateral decubitus position and the scope was passed under direct vision. Throughout the procedure, the patient's blood pressure, pulse, and oxygen saturations were monitored continuously. The upper GI endoscopy was accomplished without difficulty. The patient tolerated the procedure well. Findings: The scope was passed directly into the upper esophagus and advanced to the third portion of the duodenum. The post bulbar duodenum, ampulla and duodenal bulb were normal with normal mucosa and conniventes. The scope was withdrawn through a normal duodenal bulb and pylorus into the stomach. There was mild linear reactive gastropathy of the antrum and body. The remainder of the fundus of the stomach was normal. Upon retroflexion there was a 2 to 3 cm hiatal hernia. Biopsies were taken from the antrum. The scope was then withdrawn into the esophagus. There was no evidence of reflux esophagitis or Tapia's. Biopsies were taken at the GE junction. There were tertiary contractions and mild esophageal dysmotility. The remainder of the esophageal mucosa was normal. Impression: 1. Nonerosive GERD with mild esophageal dysmotility and small to medium sized 2 to 3 cm hiatal hernia 2. Mild linear reactive gastropathy Plan: I will follow-up the biopsies. The patient does have uncomplicated GERD. I will discuss the findings with the patient and family and we will discuss treatment options. I will proceed with screening colonoscopy.
--- NOTE | 2024-05-16 10:05 | HMH.PROCNOTE ---
[facility] Procedure Note Date: 05/16/24 Time: 10:26 Procedure Note:: Colonoscopy Procedure Report: Colonoscopy with cold snare polypectomy and Endo Clip placement Endoscopist: Raj Austin II, MD Referring physician: KATHARINA Ramirez Date of Procedure: May 16, 2024 Equipment: Olympus 190 variable stiffness pediatric colonoscope Sedation: MAC sedation Indication: Mrs. Cha is a 53-year-old female who is here for surveillance/screening colonoscopy. Her last colonoscopy was 14-15 years ago (2009 in [facility]) at which time polyps were removed. The patient does get some intermittent diarrhea but has had no change in bowel habits. She reports no abdominal pain, weight loss, rectal bleeding or family history of colon cancer. Procedure: Prior to the procedure, a history and physical exam was performed, and patient's medications and allergies were reviewed. The risks, benefits and alternatives of the sedation and procedure were discussed with the patient. All questions were answered and informed consent was obtained. The patient was brought to the procedure room. Patient identification and proposed procedure were verified by the physician and the nurse. The patient was placed in a left lateral decubitus position and the scope was passed under direct vision. Throughout the procedure, the patient's blood pressure, pulse, and oxygen saturations were monitored continuously. The colonoscopy was accomplished without difficulty. The patient tolerated the procedure well. Findings: On digital rectal examination there was normal rectal tone. There were no external hemorrhoids. The colonoscope was introduced through the anal canal to the rectum and advanced to the cecum. The ileocecal valve and appendiceal orifice were identified. The scope was advanced a short distance into the ileum which appeared grossly normal. The scope was then withdrawn into the colon. There were 7 colon polyps (ascending x 2 (4 and 5 mm), transverse x 3 (3, 3 and 11 mm), descending x 1 (13 mm) and rectum x 1 (4 to 5 mm)). These were all removed via cold snare polypectomy. There was some minor heme with removal of the rectal polyp and the polypectomy site was closed with a single Endo Clip. The remaining cecum, ascending, transverse, descending, sigmoid and rectum were grossly normal. There were no other mucosal abnormalities identified. Upon retroflexion within the rectum there were grade 1-2 internal hemorrhoids. The preparation was excellent throughout with Apison Preparation Score of 9. The cecal time was 12 minutes. Impression: 1. Colonic polyps x 7 2. Grade 1-2 internal hemorrhoids Plan: I will follow-up the polyp histology and recommend repeat surveillance colonoscopy again in 3 years. NBI was utilized with the 11 and 13 mm polyps which are likely serrated adenomas. I would encourage bulking fiber supplementation on a maintenance basis.
[2024-05-16 10:33] VITALS: BP 129/78; PULSE 101; RESP 20; TEMP 36.3; O2SAT 97
[2024-05-16 10:43] VITALS: BP 123/75; PULSE 94; RESP 18; O2SAT 97
[2024-05-16 10:53] VITALS: BP 123/74; PULSE 84; RESP 18; O2SAT 97
[2024-05-16 11:15] VITALS: BP 125/81; PULSE 85; RESP 18; O2SAT 100
== END 2024-05-16 11:15 | disposition home or self-care (01) ==
PROVIDERS: PCP Nurse Practitioner Family; Visit Provider Internal Medicine Gastroenterology
PROC: 0DJ08ZZ Inspection of Upper Intestinal Tract, Via Natural or Artificial Opening Endoscopic (ICD-10-PCS; CPT 45378; principal; 2024-05-16 09:30)
DX: R12 Heartburn (principal); K21.9 Gastro-esophageal reflux disease without esophagitis; Z86.0100 Personal history of colon polyps, unspecified; K22.4 Dyskinesia of esophagus; K31.9 Disease of stomach and duodenum, unspecified; K44.9 Diaphragmatic hernia without obstruction or gangrene; Z12.11 Encounter for screening for malignant neoplasm of colon; K63.5 Polyp of colon; K64.8 Other hemorrhoids
CPT/HCPCS: 43239; 45385; J2704; J7120

== ENCOUNTER 2024-06-01 09:26 | Outpatient (CLI) | payer BC, SELFPAY | END 2024-06-01 23:59 | disposition home or self-care (01) | LOC: LAB.DROPOF 06-04 15:20 | PROVIDERS: PCP Nurse Practitioner Family; Visit Provider Nurse Practitioner Family | DX: N39.0 Urinary tract infection, site not specified (principal); R82.90 Unspecified abnormal findings in urine | CPT/HCPCS: 87086 ==

== ENCOUNTER 2024-07-03 08:59 | Outpatient (CLI) | payer BC, SELFPAY ==
[2024-07-03 10:42] LABS: Chloride 107 mmol/L (98-107)
[2024-07-03 10:43] LABS: Albumin Level 4.3 g/dl (3.5-5.0); Sodium 143 mmol/L (136-145)
[2024-07-03 10:45] LABS: Blood Urea Nitrogen 15 mg/dl (7-17); Estimated Glomerular Filt Rate 74 ml/min (>60); GFR (African American) 90 ML/MIN (>60)
[2024-07-03 10:46] LABS: Alanine Aminotransferase 37 U/L (12-78); Albumin/Globulin Ratio 1.7 (1.1-1.8); Alkaline Phosphatase 104 U/L (38-126); Aspartate Amino Transferase 33 U/L (14-36); Bilirubin,Total 0.4 mg/dl (0.2-1.3); Calcium 9.2 mg/dl (8.4-10.2); Carbon Dioxide 29 mmol/L (22.0-30.0); Globulin 2.6 g/dL (1.3-3.2); Glucose 83 mg/dl (74-100); Total Protein,Serum 6.9 g/dl (6.3-8.2)
[2024-07-03 11:08] LABS: Anion Gap 11.5 mEq/L (5-15); Potassium 4.5 mmoL/L (3.5-5.1)
[2024-07-03 11:16] LABS: Thyroid Stimulating Hormone 2.13 uIU/mL (0.465-4.68)
[2024-07-04 14:14] LABS: Adrenocorticotropic Hormone 13.6 pg/mL (7.2-63.3)
[2024-07-04 15:14] LABS: Cortisol,AM 8.7 ug/dL (6.2-19.4)
[2024-07-06 22:08] LABS: Renin Activity, Plasma 0.969 ng/mL/hr (0.167-5.380)
[2024-07-12 10:17] LABS: Dopamine, Plasma < 30 pg/mL (0-48); Epinephrine, Plasma < 15 pg/mL (0-62); Norepinephrine, Plasma 447 pg/mL (0-874)
== END 2024-07-03 23:59 | disposition home or self-care (01) ==
LOC: LAB 09:00
PROVIDERS: PCP Nurse Practitioner Family; Visit Provider Nurse Practitioner Family
DX: G90.9 Disorder of the autonomic nervous system, unspecified (principal); R74.8 Abnormal levels of other serum enzymes
CPT/HCPCS: 36415; 80053; 82024; 82088; 82384; 82533; 84244; 84443

== ENCOUNTER 2024-10-03 08:10 | Outpatient (CLI) | payer BC, SELFPAY ==
--- OUTSIDE RECORDS SUMMARY | 2024-10-03 08:12 | XMS_ITS | Clinical Summary ---
Author Organization Healthcare Address [address] [place] [address] Care Team Providers Care Coater Helper Name Role Phone Unavailable Primary Care Provider Unavailabl e Social History Tobacco Use Types Packs/Day Years Used Date Smoking Tobacco: Never Comments Unknown Sex and Gender Information Value Date Recorded Sex Assigned at Not on file Legal Sex Female 8:28 PM EDT Gender Identity Not on file Sexual Orientation Not on file Last Filed Vital Signs Vital Sign Reading Time Taken Comments Blood Pressure - - Pulse - - Temperature - - Respiratory Rate - - Oxygen Saturation - - Inhaled Oxygen Concentration - - Weight 60 kg (132 lb 4.1 oz) 05/08/2015 3:58 PM EST Height 162.6 cm (5' 4 ) 05/08/2015 3:58 PM EST Body Mass Index 22.7 05/08/2015 3:58 PM EST Plan of Treatment Not on file Insurance [employer]
--- OUTSIDE RECORDS SUMMARY | 2024-10-03 08:13 | XMS_ITS | Data Portability ---
Author Organization ISRRAEL Paresh Jiang c, [facility] Address [address] [place] [address] Care Team Providers Care Secondary Education Professor Name Role Phone KARLA JUAREZ Mud Grinder JOHNNY HARRIS Primary Care Provider [phone] Assessment Encounter Date Assessment Date Assessment LastModified by Organization Details LastModified Time 12/16/2023 12/16/2023 Ms. Cha is a very pleasant, 53 y.o. patient with a history of dual-chamber [employer] pacemaker placement in 07/07/2022 who is being seen today as a self-referred patient to establish cardiac care. Symptomatically, the patient reports a history of COVID-19 infection x 3 times. Since her most recent COVID-19 infection, she has experienced labile blood pressures and heart rates for past one year. With prolonged standing, her HR will increase markedly and her DBP will also increase 20-50 mmHg. She has undergone an extensive lab work-up via her PCP (Johnny Dumas APRN), and no significant lab abnormalities were identified. She followed with Dr. Enmanuel Negrete (loan underwriter in [place], [place]), and his office could not identify a causative factor for patient's symptoms, either. Patient has undergone several tests: 1)Tilt Table Test (11/09/23) at [facility] ([place], [place]): -From baseline BN=712/79 mmHg and HR=66 bpm, patient's vital signs changed with prolonged standing with peak DBP of 107 mmHg and peak QQ=027 bpm. Heart rhythm and O2 sats remained normal throughout the test. Dx: Diastolic orthostatic hypertension 2)Echocardiogram (12/27/22): LVEF=60-65%, Mild RV dilatation, RVSP=20-25 mmHg, no pericardial effusion. 3)Coronary Calcium Score (01/24/23): Score = 0. 4)Coronary CT Angiogram (01/24/23): LVEF=62.4%, no CAD reported, aorta normal in size, small hiatal hernia. 5)Thyroid u/s (08/19/23): benign appearing nodules; no follow-up recommended 6)Renal artery duplex (07/30/22): no PEYMAN noted. 7)Renal u/s (07/30/22): normal renal ultrasound. The patient denies chest pain, SOA, BIANCHI, PND, orthopnea, LE edema, palpitations, near syncope, and syncope. Overall health is reported as stable. RTC: To Be Determined Lab: 24 hour urine for catecholamines Referral: [facility] (re: labile BP & HR of unknown origin) Not available 12/16/2023 15:53:43 05/11/2024 05/11/2024 Ms. Cha is a very pleasant, 53 y.o. patient with a history of dual-chamber [employer] pacemaker placement in 07/07/2022 who was last seen on 12/16/23 as a self-referred patient to establish cardiac care. To review: Symptomatically, the patient reports a history of COVID-19 infection x 3 times. Since her most recent COVID-19 infection, she has experienced labile blood pressures and heart rates for past one year. With prolonged standing, her HR will increase markedly and her DBP will also increase 20-50 mmHg. She has undergone an extensive lab work-up via her PCP (Johnny Dumas APRN), and no significant lab abnormalities were identified. She followed with Dr. Enmanuel Negrete (loan underwriter in [place], [place]), and his office could not identify a causative factor for patient's symptoms, either. Patient has undergone several tests: 1)Tilt Table Test (11/09/23) at [facility] ([place], [place]): -From baseline WM=856/79 mmHg and HR=66 bpm, patient's vital signs changed with prolonged standing with peak DBP of 107 mmHg and peak JI=834 bpm. Heart rhythm and O2 sats remained normal throughout the test. Dx: Diastolic orthostatic hypertension 2)Echocardiogram (12/27/22): LVEF=60-65%, Mild RV dilatation, RVSP=20-25 mmHg, no pericardial effusion. 3)Coronary Calcium Score (01/24/23): Score = 0. 4)Coronary CT Angiogram (01/24/23): LVEF=62.4%, no CAD reported, aorta normal in size, small hiatal hernia. 5)Thyroid u/s (08/19/23): benign appearing nodules; no follow-up recommended 6)Renal artery duplex (07/30/22): no PEYMAN noted. 7)Renal u/s (07/30/22): normal renal ultrasound. The patient reports that her blood pressure is still quite labile, and she gets frequent episodes of lightheadedness, dizziness, near syncope along with palpitations throughout the day. These changes in vital signs and associated symptoms are particularly noticeable when patient is physically active and when she does activity such as bending over to pickle cutter something. RTC: 6 months *She has been referred to Neurology *She has also contacted [facility] to try to obtain an appt. Not available 05/11/2024 15:30:19 Plan of Treatment Reminders Order Date Submit Date Provider Last Modified By Organization Details Last Modified Time Details Appointments RECHECK 2024 02:30P Lynette GRIFFITHS PA-C Not available Not available Not available Lab None recorded . Referral None recorded . Procedures None recorded . Surgeries None recorded . Imaging None recorded . Medication Orders None recorded . Patient TargetsNo targets recorded. Patient InstructionsNo instructions recorded. Reason for Referral None Reported. Results Created Date Observation Date Name Description Value Unit Range Abnormal Flag Note LastModifiedBy Organization Detail LastModifiedTime 12/20/19 24 12/24/2023 CATEC HOLAM GLO, FRACT IONAT ED UR epinephrine, 24 HR ur SEE NOTE normal Resul ts are below the repor table range for this demetri te, which is 2.0 mcg/L . This test was devel oped and its demetri tical perfo rmanc e romaine cteri stics have been deter mined by [facility] GIOVANNY Berman. It has not been clear ed or appro alexandru by the U.S. Food and Drug Admin istra tion. This assay has been valid ated pursu ant to the CLIA regul ation s and is used for clini lena purpo ses. Not Available [facility] [address] [place], [address], 12/24/2023 18:51:41 12/20/19 24 12/24/2023 CATEC HOLAM GLO, FRACT IONAT ED UR norepinephri ne, 24 HR ur 32 mcg/2 4_h 15-100 normal This test was devel oped and its demetri tical perfo rmanc e romaine cteri stics have been deter mined by [facility] [place], [place]. It has not been clear ed or appro alexandru by the U.S. Food and Drug Admin istra tion. This assay has been valid ated pursu ant to the CLIA regul ation s and is used for clini lena purpo ses. Not Available [facility] [address] [place], [address], 12/24/2023 18:51:41 12/20/19 24 12/24/2023 CATEC HOLAM GLO, FRACT IONAT ED UR total catecholamin es 32 mcg/2 4_h 26-121 normal This test was devel oped and its demetri tical perfo rmanc e romaine cteri stics have been deter mined by [facility] [place], [place]. It has not been clear ed or appro alexandru by the U.S. Food and Drug Admin istra tion. This assay has been valid ated pursu ant to the CLIA regul ation s and is used for clini lena purpo ses. Not Available [facility] [address] [place], [address], 12/24/2023 18:51:41 12/20/19 24 12/24/2023 CATEC HOLAM GLO, FRACT IONAT ED UR dopamine, 24 HR ur 233 mcg/2 4_h 52-480 normal This test was devel oped and its demetri tical perfo rmanc e romaine cteri stics have been deter mined by [facility] [place], [place]. It has not been clear ed or appro alexandru by the U.S. Food and Drug Admin istra tion. This assay has been valid ated pursu ant to the CLIA regul ation s and is used for clini lena purpo ses. Not Available [facility] [address] [facility], [place], [address], 12/24/2023 18:51:41 12/15/19 24 06/23/2022 tilt table study (PROC ) No observ ation record ed. [email or web address] [facility] [address], [place], [address], 12/15/2023 14:44:10 12/20/19 24 12/16/2023 elect alvin gomez am No observ ation record ed. BARCODE Not Available 2023 16:21:44 12/20/19 24 12/16/2023 devic e check (PROC ) No observ ation record ed. [email or web address] Not Available 2023 18:22:14 12/21/19 24 12/16/2023 pacem uday check (PROC ) No observ ation record ed. BARCODE Not Available 2023 08:31:27 05/17/19 25 05/11/2024 pacem uday check (PROC ) No observ ation record ed. BARCODE Not Available 2024 15:56:46 Result Notes None recorded. Problems Name Problem SNOMED Code Status Onset Date Resolution Date Notes Provider Name and Address Organization Details Recorded Time Hypertensive disorder 90596372 Active 2023 Jazzy espinal [facility] 13:44:50 Symptomatic sinus bradycardia 870957796 Active 2023 Jazzy Gonsalves [facility], [facility] 13:45:26 Tachycardia-br adycardia 56197343 Active 2023 Jazzy Gonsalves [facility] 13:45:40 Problem Notes None recorded. Procedures Surgical History Date Name Laterality Status Provider Name and Address Organization Details Recorded Time 05/11/19 25 Device Check completed KARLA JUAREZ MD [address] [place], [address], [facility] 05/11/2024 09:11:13 12/16/19 24 EKG completed KARLA JUAREZ MD [address] [place], [address], [facility] 12/16/2023 10:39:12 [facility] 13:46:14 [facility] 12/15/2023 13:46:27 Pac[facility]Card[facility] 13:51:04 Imaging Results None recorded. Procedure Notes None recorded. Medical Equipment None Reported. Allergies Allergen ID Allergen Name Allergen Category Reaction Reaction Severity Criticality Documentation Date Start Date Code Code System Note Provider Name and Address Organization Details Recorded Time 989122 lisinopri l medicatio n dizziness Not available low 12/16/2023 28313 RxNorm Jazzy Gonsalves [facility] 4 10:19:46 978004 morphine medicatio n Not available Not available Not available 12/16/2023 7052 RxNorm Jazzy Gonsalves [facility] 4 10:20:08 Medications Name Sig Start Date Stop Date Status Note LastModified by Organization Details LastModified Time trazodone 50 mg tablet Take 1 tablet every day by oral route as needed. 12/15 completed Not Available Not Available Not Available oxybutynin chloride ER 10 mg tablet,exten ded release 24 hr Take 1 tablet every day by oral route. active Not Available Not Available No t Available bisoprolol fumarate 5 mg tablet Take 1 tablet every day by oral route. 12/15 completed Not Available Not Available Not Available Vitals Date Recorded Body height Body mass index (BMI) Body weight Oxygen saturation Oxygen saturation in Arterial blood by Pulse oximetry Heart rate Systolic And Diastolic Provider Name and Address Organization Details Last Updated DateTime 5 162.56 cm 26.3 kg/m2 47481.6 3 g 99 % 99 % 81 /min 130/84 mm[Hg] Katlin Jones [facility] 5 08:59:41 Date Recorded Body height Body mass index (BMI) Body weight Oxygen saturation Oxygen saturation in Arterial blood by Pulse oximetry Heart rate Systolic And Diastolic Provider Name and Address Organization Details Last Updated DateTime 4 162.56 cm 26 kg/m2 51636.8 8 g 98 % 98 % 65 /min 132/86 mm[Hg] Jazzy Gonsalves [facility] 4 10:22:10 Social History Question Answer Notes LastModified by [email or web address] Details LastModified Time Tobacco Smoking Status Never Smoker Jazzy Gonsalves [facility] 12/15/2023 13:46:38 What Was The Date Of Your Most Recent Tobacco Screening? 05/11/2024 [email or web address] Information not available 05/11/2024 Has Tobacco Cessation Counseling Been Provided? No [email or web address] Information not available 05/11/2024 Sex: Female Functional Status Question Answer Note LastModified by Organizat ion Details LastModified Time Do you or have you ever used any other forms of tobacco or nicotine? No Information not available 12/15/2023 What is your level of alcohol consumption? Occasional Information not available 12/15/2023 Are you currently employed? Yes Information not available 12/15/2023 Mental Status None recorded. Family History Nothing Reported. Medical History Condition Response Pacemaker Y Hiatal hernia Y Shortness of Breath Y Hypertension Y Gynecological HistoryNo gynecological history recorded. Obstetrics History GPAL:G 0 P 0 0 0 0 Past Encounters Encounter ID Performer Location Encounter Start Date Encounter Closed Date Diagnosis/Indication Diagnosis SNOMED-CT Code Diagnosis ICD10 Code Diagnosis Note [id number] KARLA JUAREZ MD CARDIOLOG Y [address] [place] [address] 12/16/2023 09:52:20 12/16/2023 11:18:48 Cardiac pacemaker in situ 075097997 Z95.0 EKG (12/16/23) - sinus rhythm with sinus arrhythmia , rate=65, normal axis, QTc= 380 ms, no significan t ST abnormalit ies. patient's cardiac device ([employer] dual chamber pacemaker, model 2272 - implanted 07/07/22) is working well per device check today -estimated battery life 9.2 years, programmed at DDDR at 60, impedances sensing and thresholds are at normal range, atrial pacing percentage = 56%, RV pacing percentage = 13%, no mode switches or ventricula r high rates.; no recent programmin g changes; recommend home monitoring of device q 3 months, and interrogat ion in the office q 1 year. She will get establishe d with the Cardiology pacemaker clinic. Labile blood pressure 25 8243338 R09.89 Symptomati flakito, the patient reports a history of COVID-19 infection x 3 times. Since her most recent COVID-19 infection, she has experience d labile blood pressures and heart rates for past one year. With prolonged standing, her HR will increase markedly and her DBP will also increase 20-50 mmHg. She has undergone an extensive lab work-up via her PCP (Johnny Dumas APRN), and no significan t lab abnormalit ies were identified . She followed with Dr. Enmanuel Negrete (cardiolog ist in [place], [place]), and his office could not identify a causative factor for patient's symptoms, either. With these changes in HR & BP, patient reports feeling hot and sometimes experienci ng headaches. 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 My suspicion is that she has and autonomic nervous system problem related to her COVID-19 infections . Recommenda tions:1)24 hour urine for catecholam ines2)Refe rral: [facility] (re: labile BP & HR of unknown origin) [id number] KARLA JUAREZ MD CARDIOLOG Y [address] [place] [address] 05/11/2024 08:49:19 05/11/2024 09:41:17 Cardiac pacemaker in situ 137258638 Z95.0 EKG (12/16/23) - sinus rhythm with sinus arrhythmia , rate=65, normal axis, QTc= 380 ms, no significan t ST abnormalit ies. patient's cardiac device ([employer] Julian dual chamber pacemaker, model 2272 - implanted 07/07/22) is working well per device check today -estimated battery life 8.2-8.9 years, programmed at DDDR at 60, impedances sensing and thresholds are at normal range, atrial pacing percentage = 55%, RV pacing percentage = <1%, no mode switches or ventricula r high rates.; programmin g change today - increased RV pulse width to 0.7 ms; recommend home monitoring of device q 3 months, and interrogat ion in the office q 1 year. She will get establishe d with the Cardiology pacemaker clinic. Labile blood pressure 25 7010683 R09.89 To review:Sym ptomatical ly, the patient reports a history of COVID-19 infection x 3 times. Since her most recent COVID-19 infection, she has experience d labile blood pressures and heart rates for past one year. With prolonged standing, her HR will increase markedly and her DBP will also increase 20-50 mmHg. She has undergone an extensive lab work-up via her PCP (Johnny Dumas APRN), and no significan t lab abnormalit ies were identified . She followed with Dr. Enmanuel Negrete (cardiolog ist in [place], [place]), and his office could not identify a causative factor for patient's symptoms, either. With these changes in HR & BP, patient reports feeling hot and sometimes experienci ng headaches. 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 My suspicion continues to be that she has an autonomic nervous system problem related to her COVID-19 infections . Recommenda tions:1)24 hour urine for catecholam glo (12/20/23) - normal levels2)Re ferral: [facility] (re: labile BP & HR of unknown origin) -the [facility] evidently is no longer taking new patients for their autonomic diseases center; patient was referred to neurology at [facility], and no provider there felt they could be of significan t help to the patient; patient has now been referred to neurology for a second opinion on her symptoms Health Concerns Section Related Observation LastModified by Organization Detai ls LastModified Time None Recorded Concern Status LastModified by Organization Details LastModified Time None Recorded Advance Directives Directive None Recorded Payers Insurance Date Sequence Insurance Name Policy Number Policy Caldera Covered Member ID Caldera Member ID Guarantor Name 05/17/2024 1 [id number] ([place]) [id number] R Jamshid Cha [id number] Mayela Cha Notes Date Note Type Note Provider Name and Address Organization Details Recorded Time 12/16/2023 text/html Ms. Cha is a very pleasant, 53 y.o. patient with a history of dual-chamber [employer] pacemaker placement in 07/07/2022 who is being seen today as a self-referred patient to establish cardiac care. Symptomatically, the patient reports a history of COVID-19 infection x 3 times. Since her most recent COVID-19 infection, she has experienced labile blood pressures and heart rates for past one year. With prolonged standing, her HR will increase markedly and her DBP will also increase 20-50 mmHg. She has undergone an extensive lab work-up via her PCP (Johnny Dumas APRN), and no significant lab abnormalities were identified. She followed with Dr. Enmanuel Negrete (loan underwriter in [place], [place]), and his office could not identify a causative factor for patient's symptoms, either. Patient has undergone several tests:1)Tilt Table Test (11/09/23) at [facility] ([place], [place]):-From baseline LL=112/79 mmHg and HR=66 bpm, patient's vital signs changed with prolonged standing with peak DBP of 107 mmHg and peak FP=557 bpm. Heart rhythm and O2 sats remained normal throughout the test. Dx: Diastolic orthostatic hypertension2)Echoc ardiogram (12/27/22): LVEF=60-65%, Mild RV dilatation, RVSP=20-25 mmHg, no pericardial effusion.3)Coronary Calcium Score (01/24/23): Score = 0.4)Coronary CT Angiogram (01/24/23): LVEF=62.4%, no CAD reported, aorta normal in size, small hiatal hernia.5)Thyroid u/s (08/19/23): benign appearing nodules; no follow-up recommended6)Renal artery duplex (07/30/22): no PEYMAN noted.7)Renal u/s (07/30/22): normal renal ultrasound. The patient denies chest pain, SOA, BIANCHI, PND, orthopnea, LE edema, palpitations, near syncope, and syncope. Overall health is reported as stable. Family Hx: None reported KARLA JUAREZ MD [facility] [place], [address], [facility] 12/16/2023 15:54:22 05/11/2024 text/html Ms. Cha is a very pleasant, 53 y.o. patient with a history of dual-chamber [employer] pacemaker placement in 07/07/2022 who was last seen on 12/16/23 as a self-referred patient to establish cardiac care. To review:Symptomatica lly, the patient reports a history of COVID-19 infection x 3 times. Since her most recent COVID-19 infection, she has experienced labile blood pressures and heart rates for past one year. With prolonged standing, her HR will increase markedly and her DBP will also increase 20-50 mmHg. She has undergone an extensive lab work-up via her PCP (Johnny Dumas APRN), and no significant lab abnormalities were identified. She followed with Dr. Enmanuel Negrete (loan underwriter in [place], [place]), and his office could not identify a causative factor for patient's symptoms, either. Patient has undergone several tests:1)Tilt Table Test (11/09/23) at [facility] ([place], [place]):-From baseline RK=469/79 mmHg and HR=66 bpm, patient's vital signs changed with prolonged standing with peak DBP of 107 mmHg and peak YA=678 bpm. Heart rhythm and O2 sats remained normal throughout the test. Dx: Diastolic orthostatic hypertension2)Echoc ardiogram (12/27/22): LVEF=60-65%, Mild RV dilatation, RVSP=20-25 mmHg, no pericardial effusion.3)Coronary Calcium Score (01/24/23): Score = 0.4)Coronary CT Angiogram (01/24/23): LVEF=62.4%, no CAD reported, aorta normal in size, small hiatal hernia.5)Thyroid u/s (08/19/23): benign appearing nodules; no follow-up recommended6)Renal artery duplex (07/30/22): no PEYMAN noted.7)Renal u/s (07/30/22): normal renal ultrasound. The patient reports that her blood pressure is still quite labile, and she gets frequent episodes of lightheadedness, dizziness, near syncope along with palpitations throughout the day. These changes in vital signs and associated symptoms are particularly noticeable when patient is physically active and when she does activity such as bending over to pickle cutter something. Patient returns to the clinic today for a scheduled follow-up visit. KARLA JUAREZ MD [address] [place], [address], [facility] 05/11/2024 15:31:48 OBGyn Episode No OBEpisode recorded.
--- OUTSIDE RECORDS SUMMARY | 2024-10-03 08:13 | XMS_ITS | Clinical Summary ---
Author Organization [facility] Address [address] [place] [address] Care Team Providers Care Assistant Office Manager Name Role Phone Unavailable Primary Care Provider Unavailabl e Source Comments This information has been disclosed to you from confidential records protectedfrom disclosure by state law. You shall make no further disclosure of thisinformation without the specific, written, and informed release of theindividual to whom it pertains, or as otherwise permitted by law. A generalauthorization for the release of medical or other information is not sufficientfor the purposes of therelease of HIV test results or diagnoses. [id number] Social History Tobacco Use Types Packs/Day Years Used Date Smoking Tobacco: Never Assessed Comments Unknown Sex and Gender Information Value Date Recorded Sex Assigned at Not on file Legal Sex Female 9:19 AM EST Gender Identity Not on file Sexual Orientation Not on file Plan of Treatment Not on file Insurance BLUE ACCESS
--- OUTSIDE RECORDS SUMMARY | 2024-10-03 08:13 | XMS_ITS | Clinical Summary ---
Author Organization [facility] Address [address] [place] [phone] Phone [email or web address] Care Team Providers Care Wire Temperer Name Role Phone Boo Jacqueline Schultz APRN Primary Care Provider Allergies No known active allergies Medications bisoprolol (ZEBETA) 5 MG tablet Take 5 mg by mouth in the morning and 5 mg before bedtime. 08/04/2022 Active Active Problems Problem Noted Date Diagnosed Date S/P placement of cardiac pacemaker 08/25/2022 Hypertension 08/25/2022 Encounter for occupational health examination Mitral valve prolapse 05/31/2022 Tachy-luz marina syndrome 05/26/2022 Post-menopausal bleeding 04/20/2016 Social History Tobacco Use Types Packs/Day Years Used Date Smoking Tobacco: Never Smokeless Tobacco: Never Tobacco Cessation:Counseling Given: Not Answered Intimate Partner Violence Answer Date R ecorded Insults You Not on file 07/09/2020 Threatens You Not on file 07/09/2020 Screams at You Not on file 07/09/2020 Physically Hurt Not on file 07/09/2020 Intimate Partner Violence Score Not on file 07/09/2020 Depression Answer Date Recorded PHQ Total Score Not on file 08/27/2023 Stress Answer Date Recorded Stress in your Life Not on file 02/02/2024 Dealing with Stress 3 02/02/2024 Comments No Sex and Gender Information Value Date Recorded Sex Assigned at Not on file Legal Sex Female 12:02 AM CDT Gender Identity Not on file Sexual Orientation Not on file Last Filed Vital Signs Vital Sign Reading Time Taken Comments Blood Pressure 153/89 09/08/2023 8:25 AM EDT Pulse 59 09/08/2023 8:25 AM EDT Temperature 35.9 C (96.6 F) 01/26/2023 12:35 PM EDT Respiratory Rate 18 09/08/2023 8:25 AM EDT Oxygen Saturation 98% 09/08/2023 8:25 AM EDT Inhaled Oxygen Concentration - - Weight 66.5 kg (146 lb 9.6 oz) 01/26/2023 12:35 PM EDT Height 161.3 cm (5' 3.5 ) 01/26/2023 12:35 PM ED T Body Mass Index 25.56 01/26/2023 12:35 PM EDT Plan of Treatment Health Maintenance Due Date Last Done Comments Dental Cleaning/Exam 1968 HIV Screening 1968 Hepatitis C Screening 1968 Cervical Cancer Screening 1984 Annual Preventive Exam 1986 Hep B Infection Screening - Triple Screen 1986 Hepatitis B Immunization (1 of 3 - 19+ 3-dose series) 12/05/1987 Tetanus Diphtheria and Pertussis Immunization (1 - Tdap) 12/05/1987 Colorectal Cancer Screening 1998 Zoster Immunization (1 of 2) 2018 Covid-19 Immunization (3 - season) 2023 08/29/2020, 08/01/2020 Influenza Immunization (#1) 2024 Breast Cancer Screening 05/26/2025 05/27/19 24, 04/13/2022, 03/13/2021, Additional history exists HIB Immunization Aged Out No longer e ligible based on patient's age to complete this topic HPV Immunization Aged Out No longer e ligible based on patient's age to complete this topic Hepatitis A Immunization Aged Out No longer eligible based on patient's age to complete this topic Pneumococcal: Ped (0 to 5 Yrs) and At-Risk Member (6 to 64 Yrs) Aged Out No longer eligible based on patient's age to complete this topic Polio Immunization Aged Out No longer eligible based on patient's age to complete this topic Insurance OPT OUT NO COPAY NB Care Teams Wire Temperer Relationship Specialty Start Date End Date Jacqueline Haddad APRN [address] [place] [address] PCP - General Family Medicine 04/14/21
[2024-10-03 09:34] LABS: Free T4 (Free Thyroxine) 1.31 ng/dl (0.78-2.19)
[2024-10-03 09:49] LABS: Thyroid Stimulating Hormone 2.62 uIU/mL (0.465-4.68)
[2024-10-04 08:13] LABS: Triiodothyronine (T3) Free 3.2 pg/mL (2.0-4.4)
[2024-10-04 13:38] LABS: EBV Nuclear Antigen Ab, IgG >600.0 U/mL (0.0-17.9)
[2024-10-04 15:20] LABS: Cortisol,AM 14.5 ug/dL (6.2-19.4)
[2024-10-11 11:24] LABS: Dopamine, Plasma < 10.0 pg/mL (0.0-36.7); Epinephrine, Plasma 28.0 pg/mL (0.0-55.4); Norepinephrine, Plasma 441 pg/mL (115-524)
== END 2024-10-03 23:59 | disposition home or self-care (01) ==
LOC: LAB 08:10
PROVIDERS: PCP Nurse Practitioner Family; Visit Provider Nurse Practitioner Family
DX: I49.9 Cardiac arrhythmia, unspecified (principal); G90.9 Disorder of the autonomic nervous system, unspecified; E04.1 Nontoxic single thyroid nodule; R42 Dizziness and giddiness
CPT/HCPCS: 36415; 82024; 82384; 82533; 84439; 84443; 84481; 86376; 86664; 86665; 86800

== ENCOUNTER 2024-10-22 15:17 | Outpatient (CLI) | payer BC, SELFPAY ==
[2024-10-22 18:53] LABS: Alanine Aminotransferase 35 U/L (12-78); Albumin Level 4.6 g/dl (3.5-5.0); Albumin/Globulin Ratio 2.0 (1.1-1.8); Alkaline Phosphatase 108 U/L (38-126); Anion Gap 11.3 mEq/L (5-15); Aspartate Amino Transferase 36 U/L (14-36); Bilirubin,Total 0.3 mg/dl (0.2-1.3); Blood Urea Nitrogen 15 mg/dl (7-17); Calcium 9.7 mg/dl (8.4-10.2); Carbon Dioxide 27 mmol/L (22.0-30.0); Chloride 104 mmol/L (98-107); Creatinine,Serum 0.80 mg/dl (0.52-1.04); Estimated Glomerular Filt Rate 74 ml/min (>60); GFR (African American) 90 ML/MIN (>60); Globulin 2.3 g/dL (1.3-3.2); Glucose 86 mg/dl (74-100); Potassium 4.3 mmoL/L (3.5-5.1); Sodium 138 mmol/L (136-145); Total Protein,Serum 6.9 g/dl (6.3-8.2)
--- OUTSIDE RECORDS SUMMARY | 2024-10-23 12:37 | XMS_ITS | Clinical Summary ---
Author Organization [facility] Address [facility] [place] [address] Care Team Providers Care Focuser Name Role Phone Unavailable Primary Care Provider [...] therelease of HIV test results or diagnoses. [id number] Social History Tobacco Use Types Packs/Day Years Used Date Smoking Tobacco: Never Assessed Comments Unknown Sex and Gender Information Value Date Recorded Sex Assigned at Not on file Legal Sex Female 9:19 AM EST Gender Identity Not on file Sexual Orientation Not on file Plan of Treatment Not on file Insurance BLUE ACCESS
--- OUTSIDE RECORDS SUMMARY | 2024-10-23 12:37 | XMS_ITS | Clinical Summary ---
Author Organization [facility] Address [address] [facility] [address] [place] [address] Care Team Providers Care Campaign Fundraiser Name Role Phone Stella Landa NP Primary Care Provider [phone] Social History Tobacco Use Types Packs/Day Years Used Date Smoking Tobacco: Never Assessed Comments Unknown Sex and Gender Information Value Date Recorded Sex Assigned at Not on file Legal Sex Female 9:40 AM EDT Gender Identity Not on file Sexual Orientation Not on file Plan of Treatment Upcoming Encounters Date Type Department Care Team (Late st Contact Info) Description 11/28/2024 2:20 PM EDT [facility] [address] [facility] [address] [place] [address] Surya Aguilera MD [address] [place] [address] Health Maintenance Due Date Last Done Comments CT Colonography 1968 Colonoscopy 1968 Colorectal Cancer Screening 1968 FIT-DNA (Cologuard) 1968 FIT 1968 FOBT 1968 HIV Screening 1968 Hepatitis C Screening 1968 Sigmoidoscopy 1968 MMR Vaccines (1 of 1 - Standard series) 1969 Hepatitis B Screening 1986 DTaP/Tdap/Td Vaccines (1 - Tdap) 12/05/1987 Hepatitis B Vaccines (1 of 3 - 19+ 3-dose series) 12/05/1987 Pap Smear 1989 Cervical Cancer Screening 1998 HPV/Cotest 1998 Pneumococcal Vaccine: 50+ Years (1 of 1 - PCV) 2018 Zoster Vaccines (1 of 2) 2018 COVID-19 Vaccine (3 season) 2023 08/29/2020, 08/01/2020 Depression Risk Screening 03/28/2024 SDOH Screening 03/28/2024 Mammogram 05/26/2024 05/27/2023, 03/28, 03/13/2021, Additional history exists Influenza Vaccine (#1) 2024 HIB Vaccines Aged Out No longer eligi ble based on patient's age to complete this topic HPV Vaccines Aged Out No longer eligi ble based on patient's age to complete this topic Hepatitis A Vaccines Aged Out No long er eligible based on patient's age to complete this topic IPV Vaccines Aged Out No longer eligi ble based on patient's age to complete this topic Meningococcal B Vaccine Aged Out No l onger eligible based on patient's age to complete this topic Meningococcal Vaccine Aged Out No [place] eligible based on patient's age to complete this topic Rotavirus Vaccines Aged Out No longer eligible based on patient's age to complete this topic Care Teams Campaign Fundraiser Relationship Specialty Start Date End Date Stella Landa NP [address] [place] [phone] PCP - General 08/15/24
--- OUTSIDE RECORDS SUMMARY | 2024-10-23 12:37 | XMS_ITS | Clinical Summary ---
Author Organization [facility] Address [address] [place] [address] Care Team Providers Care Protection Engineer Name Role Phone Unavailable Primary Care Provider [...]
--- OUTSIDE RECORDS SUMMARY | 2024-10-23 12:37 | XMS_ITS | Clinical Summary ---
Author Organization [facility] Address [address] [place] [address] Care Team Providers Care Procedure Rn Name Role Phone Provider, No Known Primary Care Provider Unavail able Allergies No known active allergies Medications traZODone (DESYREL) 50 MG tabletIndications :Insomnia, unspecified type Take 1-2 tabs po QHS prn sleep 60 tablet 11 05/17/2022 Active Active Problems Problem Noted Date Diagnosed Date Post-menopausal bleeding 04/20/2016 Family History Medical History Relation Name Comments Breast cancer Neg Hx Ovarian cancer Neg Hx Social History Tobacco Use Types Packs/Day Years Used Date Smoking Tobacco: Never Smokeless Tobacco: Never Alcohol Use Standard Drinks/Week Comments No 0 (1 standard drink = 0.6 oz pur e alcohol) Abuse Screen Answer Date Recorded Unsafe at Home or Work/School Not on file Feels Threatened by Someone? Not on file 09/2023 Does Anyone Keep You from Co ntacting Others or Doint Things Outside the Home? Not on file 06/02/2023 Physical Sign of Abuse Present Not on file 0 06/02/2023 Housing Stability Answer Date Recorded Current Living Arrangements Not on file 12/26 Potentially Unsafe Housing Conditions Not on jairo e 01/04/2023 Family and Community Support Answer Chon e Recorded Help with Day-to-Day Activities Not on file 01/04/2023 Lonely or Isolated Not on file 01/04/2023 Employment Answer Date Recorded Do you want help finding or keeping work or a rodolfo b? Not on file 01/04/2023 Disabilities Answer Date Recorded Concentrating, Remembering, or Making Decisions Difficulty Not on file 01/04/2023 Doing Errands Independently Difficulty Not on fi le 01/04/2023 Education Answer Date Recorded Help with school or training? Not on file Preferred Language Not on file 01/04/2023 Comments No Sex and Gender Information Value Date Recorded Sex Assigned at Not on file Legal Sex Female 1:43 PM EDT Gender Identity Not on file Sexual Orientation Not on file Last Filed Vital Signs Vital Sign Reading Time Taken Comments Blood Pressure 160/100 05/31/2022 12:42 PM EST Pulse 59 05/31/2022 12:42 PM EST Temperature 37.1 C (98.7 F) 05/31/2022 12:42 PM EST Respiratory Rate 20 05/31/2022 12:42 PM EST Oxygen Saturation 100% 05/31/2022 12:42 PM EST Inhaled Oxygen Concentration - - Weight 63.5 kg (140 lb) 05/31/2022 12:42 PM EST Height 162.6 cm (5' 4 ) 05/31/2022 12:42 PM EST Body Mass Index 24.03 05/31/2022 12:42 PM EST Plan of Treatment Health Maintenance Due Date Last Done Comments TDAP/TD VACCINES (1 - Tdap) 12/05/1987 COLOGUARD 2013 COLON CANCER SCREENING 5 YEA R SIGMOIDOSCOPY 2013 COLONOSCOPY [address] CANCER SCREENING 2013 CT COLONOGRAPHY 2013 FECAL OCCULT BLOOD TEST 2013 FIT Testing (1 year) 2013 Pneumococcal Vaccine 50+ (1 of 1 - PCV) 2018 ZOSTER VACCINE (1 of 2) 2018 ANNUAL PHYSICAL 01/15/2021 HEPATITIS C SCREENING 01/15/2021 Annual Gynecologic Pelvic an d Breast Exam 05/18/2023 05/17/2022, 02/25/2021, 02/23/2021 COVID-19 Vaccine (3 - 2023-2 5 season) 2023 08/29/2020, 08/01/2020 INFLUENZA VACCINE 12/26/2024 MAMMOGRAM 05/26/2025 05/27/2023, 03/28, 03/13/2021, Additional history exists Procedures Procedure Name Priority Date/Time Associated Diagnosis Comments MAMMO SCREENING DIGITAL TOMOSYNTHESIS BILATERAL W CAD Routine 05/27/2023 3:47 PM EST Visit for screening mammogram SCANNED - PAP SMEAR Routine 02/25/2021 from Last 3 Months or Most Recently Relevant to Health Maintenance Results * Mammo Screening Digital Tomosynthesis Bilateral With CAD (05/27/2023 3:47 PM EST) Anatomical Region Laterality Modality Breast N/A Mammography 06/02/2023 10:1 5 AM EST Impressions 06/02/2023 10:17 AM EST No mammographic findings suspicious for malignancy. RECOMMENDATION: Continue annual screening mammography. BI-RADS CATEGORY 1, NEGATIVE. CAD was utilized. The standard false-negative rate of mammography is between 10% and 25%. Complex patterns or increased breast density will markedly elevate the false-negative rate of mammography. A letter, in lay terminology, with the results of this exam will be mailed to the patient. This report was finalized on 06/02/2023 10:[address] Mini Rodriguez MD. Narrative 06/02/2023 10:17 AM EST BILATERAL SCREENING MAMMOGRAM WITH TOMOSYNTHESIS: HISTORY: The patient has no personal history or significant family history of breast cancer and no focal breast complaints at the time of screening mammography. TECHNIQUE: Bilateral CC and MLO low dose, full field digital mammographic images were obtained with tomosynthesis. COMPARISON: 04/13/2022, 03/13/2021, 08/10/2018, 02/09/2017, 01/23/2015 FINDINGS: There are scattered areas of fibroglandular density. The fibroglandular pattern is stable. There are no suspicious masses, worrisome calcifications, nonsurgical areas of architectural distortion, or other secondary signs of malignancy. us Dolly Jc MD IMG MAMMOGRAPHY ORDERABLES Final Result * PAP SMEAR SCANNED (02/25/2021) us Dolly Jc MD CHART REVIEW TABS Final Resul t [facility]
[address] [place] [id number], [place] [phone] from Last 3 Months or Most Recently Relevant to Health Maintenance Insurance Care Teams Procedure Rn Relationship Specialty Start Date End Date Provider, No Known [place] [address] PCP - General 08/10/18
== END 2024-10-22 23:59 | disposition home or self-care (01) ==
LOC: LAB.DROPOF 10-23 12:35
PROVIDERS: PCP Nurse Practitioner Family; Visit Provider Nurse Practitioner Family
DX: R74.8 Abnormal levels of other serum enzymes (principal)
CPT/HCPCS: 80053

== ENCOUNTER 2024-12-17 13:38 | Outpatient (RCR) | payer BC, SELFPAY | END 2024-12-17 23:59 | disposition home or self-care (01) | LOC: PT 13:38 | PROVIDERS: Visit Provider Psychiatry & Neurology Neurology | DX: G90.A Postural orthostatic tachycardia syndrome [POTS] (principal) | CPT/HCPCS: 97162 ==

== ENCOUNTER → 2025-01-31 06:42 | Outpatient (CLI) | payer BC, SELFPAY ==
--- OUTSIDE RECORDS SUMMARY | 2024-12-10 08:40 | XMS_ITS | Encounter Summary ---
Author Organization [facility] Address [address] [place] [address] Care Team Providers Care An/Sqq 89(V)15 Sonar System Journeyman Name Role Phone Stella Landa APRN Primary Care Provider [phone] Reason for Referral * Diagnostic Imaging (Routine) - Authorized Specialty Diagnoses / Procedures Referred By Contac t Referred To Contact Obstetrics and Gynecology Diagnoses Osteoporosis screening Asymptomatic postmenopausal state Procedures DEXA Bone Density Axial Dolly Jc MD [address] [place] [address] Phone: tel: fax: [facility] [address] [address] Phone: tel: fax: Referral ID Status Reason Start Date Expiration Date V isits Requested Visits Authorized [id number] Authorized 12/10/2024 03/11/2026 1 1 * Diagnostic Imaging (Routine) - Authorized Specialty Diagnoses / Procedures Referred By Contac t Referred To Contact Radiology Diagnoses Breast cancer screening by mammogram Procedures Mammo Screening Digital Tomosynthesis Bilateral With CAD Dolly Jc MD [address] [facility] [address] [place] [address] Phone: tel: fax: [place] [id number] [place] [address] Phone: tel: Referral ID Status Reason Start Date Expiration Date V isits Requested Visits Authorized [id number] Authorized 12/10/2024 03/11/2026 1 1 Reason for Visit * Reason Comments Gynecologic Exam Encounter Details Date Type Department Care Team (Late st Contact Info) Description 12/10/2024 9:40 AM EDT Office Visit [facility] [address] [place] [address] Dolly Jc MD [address] [facility] [address] [place] [address] Women's annual routine gynecological examination (Primary Dx); Breast cancer screening by mammogram; Osteoporosis screening; Asymptomatic postmenopausal state; Vaginal atrophy Social History Tobacco Use Types Packs/Day Years Used Date Smoking Tobacco: Never Smokeless Tobacco: Never Alcohol Use Standard Drinks/Week Comments No 0 (1 standard drink = 0.6 oz pur e alcohol) Abuse Screen Answer Date Recorded Feels Unsafe at Home or Work/School no 05/31/2022 Feels Threatened by Someone no 08/2022 Does Anyone Keep You from Co ntacting Others or Doint Things Outside the Home? Not on file 05/31/2022 Physical Signs of Abuse Present no 05/31/2022 Comments No Sex and Gender Information Value Date Recorded Sex Assigned at Female 11/26/2024 7:31 PM EDT Legal Sex Female 1:43 PM EDT Gender Identity Not on file Sexual Orientation Straight 11/26/2024 7: 31 PM EDT documented as of this encounter Last Filed Vital Signs Vital Sign Reading Time Taken Comments Blood Pressure 142/92 12/10/2024 9:50 AM EDT Pulse - - Temperature - - Respiratory Rate 18 12/10/2024 9:50 AM EDT Oxygen Saturation - - Inhaled Oxygen Concentration - - Weight 66.2 kg (146 lb) 12/10/2024 9:50 AM EDT Height 162.6 cm (5' 4.02 ) 12/10/2024 9:50 AM ED T Body Mass Index 25.05 12/10/2024 9:50 AM EDT documented in this encounter Progress Notes * Dolly Jc MD - 12/10/2024 9:40 AM EDT Images from the original note were not included. Gynecologic Annual Exam Note CC - Here for Annual Exam. Subjective HPI Mayela Cha is a 54 y.o. female, , who presents for annual well woman exam. She is s/p [facility] in 2017. Patient reports problems with: none. Partner Status: Marital Status: . New Partners since last visit: no. She Denies vasomotor symptoms. She denies issues with urinary incontinence. The patient does not have any complaints today. She has concerns about domestic violence: no. Additional ETHICS OFFICER History History of abnormal Pap smear: no Family history of uterine, colon, breast, or ovarian cancer: no Performs monthly Self-Breast Exam: yes Exercises Regularly: yes Feelings of Anxiety or Depression: no Last Pap : 02/23/2021. Results: Negative, Negative Last Completed Pap Smear This patient has no relevant Health Maintenance data. Last mammogram: 11/27/2024 Last Completed Mammogram Awaiting Completion MAMMOGRAM (Every 2 Years) Order placed this encounter 12/10/2024 Order placed for Mammo Screening Digital Tomosynthesis Bilateral With CAD by Sandy Jc MD 11/29/2024 Registry Metric: Last Mammogram Date 11/27/2024 Mammo Screening Digital Tomosynthesis Bilateral With CAD 05/27/2023 Mammo Screening Digital Tomosynthesis Bilateral With CAD 04/13/2022 Mammo Screening Digital Tomosynthesis Bilateral With CAD Only the first 5 history entries have been loaded, but more history exists. Last colonoscopy: 06/2024 at [facility]. Repeat in 3 years. Patient will try to have them fax records. Last Completed Colonoscopy This patient has no relevant Health Maintenance data. Last DEXA: never Tobacco Usage?: No OB History 3 Para 3 Term 3 AB Living SAB IAB Ectopic Molar Multiple Live Births 3 Health Maintenance Topic Date Due TDAP/TD VACCINES (1 - Tdap) Never done COLORECTAL CANCER SCREENING Never done Pneumococcal Vaccine 50+ (1 of 1 - PCV) Never done ZOSTER VACCINE (1 of 2) Never done HEPATITIS C SCREENING Never done ANNUAL PHYSICAL Never done Annual Gynecologic Pelvic and Breast Exam 05/18/2023 COVID-19 Vaccine ( season) 2024 INFLUENZA VACCINE 12/26/2024 MAMMOGRAM 11/29/2026 The additional following portions of the patient's history were reviewed and updated as appropriate: allergies, current medications, past family history, past medical history, past social history, past surgical history, and problem list. Past Medical History: Diagnosis Date Mitral valve prolapse Post-menopausal bleeding Wears glasses Past Surgical History: Procedure Laterality Date BREAST BIOPSY Left COLONOSCOPY 2010 DILATATION AND CURETTAGE LAPAROSCOPIC TUBAL LIGATION OOPHORECTOMY OK LAPS W/RAD HYST W/BILAT LMPHADEC RMVL TUBE/OVARY N/A 04/20/2016 TLH/BSO TOTAL LAPAROSCOPIC HYSTERECTOMY SALPINGO OOPHORECTOMY Bilateral 04/20/2016 TLH/BSO Review of Systems I have reviewed and agree with the HPI, ROS, and historical information as entered above. Dolly Jc MD Objective BP 142/92 Resp 18 Ht 162.6 cm (64.02 ) Wt 66.2 kg (146 lb) BMI 25.05 kg/m?? Physical Exam Vitals and nursing note reviewed. Exam conducted with a senior developer present. Constitutional: General: She is awake. Appearance: Normal appearance. HENT: Head: Normocephalic and atraumatic. Neck: Thyroid: No thyroid mass, thyromegaly or thyroid tenderness. Cardiovascular: Rate and Rhythm: Normal rate and regular rhythm. Heart sounds: Normal heart sounds. No murmur heard. No friction rub. No gallop. Pulmonary: Effort: Pulmonary effort is normal. No respiratory distress or retractions. Breath sounds: Normal breath sounds. No stridor. No wheezing, rhonchi or rales. Chest: Chest wall: No mass. Breasts: Right: Normal. No swelling, bleeding, mass, nipple discharge, skin change or tenderness. Left: Normal. No swelling, bleeding, mass, nipple discharge, skin change or tenderness. Abdominal: General: There is no distension. Palpations: Abdomen is soft. There is no mass. Tenderness: There is no abdominal tenderness. There is no guarding or rebound. Genitourinary: Exam position: Lithotomy position. Pubic Area: No rash. Labia: Right: No rash, tenderness, lesion or injury. Left: No rash, tenderness, lesion or injury. Urethra: No prolapse, urethral pain, urethral swelling or urethral lesion. Vagina: No vaginal discharge, erythema, tenderness, bleeding or lesions. Uterus: Absent. Adnexa: Right adnexa normal and left adnexa normal. Right: No mass, tenderness or fullness. Left: No mass, tenderness or fullness. Rectum: No external hemorrhoid. Comments: Cervix Absent Musculoskeletal: Cervical back: Normal range of motion. Lymphadenopathy: Upper Body: Right upper body: No supraclavicular or axillary adenopathy. Left upper body: No supraclavicular or axillary adenopathy. Lower Body: No right inguinal adenopathy. No left inguinal adenopathy. Skin: General: Skin is warm. Findings: No lesion or rash. Neurological: Mental Status: She is alert and oriented to person, place, and time. Psychiatric: Mood and Affect: Mood and affect normal. Speech: Speech normal. Assessment & Plan Assessment Problem List Items Addressed This Visit None Visit Diagnoses Women's annual routine gynecological examination - Primary Relevant Medications oxybutynin XL (DITROPAN XL) 15 MG 24 hr tablet estradiol (ESTRACE VAGINAL) 0.1 MG/GM vaginal cream Other Relevant Orders LIQUID-BASED PAP SMEAR WITH HPV GENOTYPING IF ASCUS (NIC,COR,MAD) Breast cancer screening by mammogram Relevant Orders Mammo Screening Digital Tomosynthesis Bilateral With CAD Osteoporosis screening Relevant Orders DEXA Bone Density Axial Asymptomatic postmenopausal state Relevant Medications oxybutynin XL (DITROPAN XL) 15 MG 24 hr tablet estradiol (ESTRACE VAGINAL) 0.1 MG/GM vaginal cream Other Relevant Orders DEXA Bone Density Axial Vaginal atrophy Relevant Medications oxybutynin XL (DITROPAN XL) 15 MG 24 hr tablet estradiol (ESTRACE VAGINAL) 0.1 MG/GM vaginal cream Plan Reviewed monthly self breast exams. Instructed to call with lumps, pain, or breast discharge. Yearly mammograms ordered. Ordered mammogram today. Recommended use of Vitamin D and getting adequate calcium in her diet. (1500mg) Osteoporosis screening ordered today. Reviewed exercise as a preventative health measures. RTC in 1 year or PRN with problems. Will begin vaginal E Dolly Jc MD 12/10/2024 documented in this encounter Plan of Treatment Upcoming Encounters Date Type Department Care Team (Late st Contact Info) Description 12/16/2025 9:40 AM EDT Office Visit [facility] [address] [place] [address] Dolly Jc MD [address] [facility] [address] [place] [id number] Scheduled Orders Name Type Priority Associated Diagnoses Orde r Schedule Mammo Screening Digital Tomosynthesis Bilateral With CAD Imaging Routine Breast cancer screening by mammogram Expected: 12/10/2025, Expires: 12/10/2025 DEXA Bone Density Axial Imaging Routine Osteoporosis screening Asymptomatic postmenopausal state Expected: 12/13/2024, Expires: 03/11/2026 documented as of this encounter Procedures Procedure Name Priority Date/Time Associated Diagnosis Comments LIQUID-BASED PAP SMEAR WITH HPV GENOTYPING IF ASCUS, [facility] (NIC,COR,MAD) Routine 12/10/2024 1:34 PM EDT Women's annual routine gynecological examination documented in this encounter Results * LIQUID-BASED PAP SMEAR WITH HPV GENOTYPING IF ASCUS (NIC,COR,MAD) (12/10/2024 1:34 PM EDT) Reference Lab Report FINAL BROACHING MACHINE SET UP OPERATOR CYTOLOGY REPORT ---- DIAGNOSIS: Negative for intraepithelial lesion or malignancy Multiple factors can influence accuracy of Pap tests; therefore, screening at regular intervals is necessary for early cancer detection. ---- Adequacy SATISFACTORY FOR EVALUATION Source VAGINAL/VAGINAL CUFF LMP None provided CLINICAL HISTORY: Routine Post menopausal, Vaginal atrophy The pap smear is a screening test with limited sensitivity, and false negative tests results can occur. ThinPrep Pap imagined by [employer] (AI assisted system). Screened by TORI PITT (ASCP) 12/11/2024 1:56 PM EDT [facility] ThinPrep Vial Collection / Unknown 12/10/2024 1:34 PM EDT 12/10/2024 1:34 PM EDT us Dolly Jc MD PATHOLOGY/CYTOLOGY ORDERABLES Fi nal Result [facility]
[address] [place] [address], documented in this encounter Visit Diagnoses Diagnosis Women's annual routine gynecological examination- Primary Breast cancer screening by mammogram Osteoporosis screening Special screening for osteoporosis Asymptomatic postmenopausal state Vaginal atrophy Postmenopausal atrophic vaginitis documented in this encounter Care Teams An/Sqq 89(V)15 Sonar System Journeyman Relationship Specialty Start Date End Date Stella Landa APRN [address] [place] [address] PCP - General Internal Medicine 10/26/24 documented as of this encounter
--- OUTSIDE RECORDS SUMMARY | 2025-01-31 06:43 | XMS_ITS | Data Portability ---
Author Organization ISRRAEL Paresh Jiang c, [facility] Address [address] [facility] [address] [place] [address] Care Team Providers Care Curber Name Role Phone KARLA JUAREZ Home Appliance Technician [phone] JOHNNY HARRIS Primary Care Provider Assessment Encounter Date Assessment Date Assessment LastModified [...] identified. She followed with Dr. Enmanuel Negrete (travel nurse in [place], [place]), and his office could not identify a causative factor for patient's symptoms, either. Patient has undergone several tests: 1)Tilt Table Test (11/09/23) at [facility] ([place], [place]): -From baseline JK=901/79 mmHg and HR=66 bpm, patient's vital signs changed with prolonged standing with peak DBP of 107 mmHg and peak RB=434 bpm. Heart rhythm and O2 sats remained [...] Lab: 24 hour urine for catecholamines Referral: [facility] (re: labile BP & HR of unknown origin) [email or web address] Not available 12/16/2023 15:53:43 05/11/2024 05/11/2024 Ms. [...] identified. She followed with Dr. Enmanuel Negrete (travel nurse in [place], [place]), and his office could not identify a causative factor for patient's symptoms, either. Patient has undergone several tests: 1)Tilt Table Test (11/09/23) at [facility] ([place], [place]): -From baseline ZV=554/79 mmHg and HR=66 bpm, patient's vital signs changed with prolonged standing with peak DBP of 107 mmHg and peak YB=830 bpm. Heart rhythm and O2 sats remained [...] does activity such as bending over to machine pecan picker something. RTC: 6 months *She has been referred to Neurology *She has also contacted [facility] to try to obtain an appt. [email or web address] Not available 05/11/2024 15:30:19 Plan of Treatment Reminders Order Date Submit Date Provider Last Modified By Organization Details Last Modified Time Details Appointments RECHECK 2025 01:30P Lynette JUAREZ MD Not available Not available Not available Lab vitamin B12 + folate, serum or blood 2024 025 [facility], [address] [place] [address], [phone], 10/09/2024 19:09:21 vitamin D, 25-hydro xy, total, serum 2024 025 [facility], [address] [place] [address], [id number], 10/09/2024 19:09:20 CBC w/ auto diff 2024 025 [facility], [address] [place] [address], [phone], 10/09/2024 18:57:58 Referral None recorded . Procedures pacemake r programm ing, dual lead (PROC) 2024 025 RAMAN [facility] [address] , [facility], [place], [address], 10/10/2024 09:48:45 Surgeries None recorded . Imaging US, doppler echocard iogram, w/ color flow 2024 025 [email or web address] [facility], [address] [place] [address] , [place], [address], 11/08/2024 10:50:18 Medication Orders None recorded . Patient TargetsNo targets recorded. Patient Instructions Encounter Date Encounter Id Patient Instructions Last Modified By Organization Details Last Modified Time 10/09/2024 [id number] Heart Station Patient Instructions [email or web address] Not available 10/09/2024 15:11:04 Reason for Referral None Reported. Results Created Date Observation Date Name Description Value Unit Range Abnormal Flag Note LastModifiedBy Organization Detail LastModifiedTime 12/20/1912/24/2023 CATEC HOLAM GLO, FRACT IONAT ED UR epinephrine, 24 HR ur SEE NOTE normal Resul ts are below the repor table range for this demetri te, which is 2.0 mcg/L . This test was devel oped and its demetri tical perfo rmanc e romaine cteri stics have been deter mined by [facility] [place] [place]. It has not been clear ed or appro alexandru by the U.S. Food and Drug Admin istra tion. This assay has been valid ated pursu ant to the CLIA regul ation s and is used for clini lena purpo ses. Not Available [facility] [address] [facility], [place], [address], 12/24/2023 18:51:41 12/20/1912/24/2023 CATEC HOLAM GLO, FRACT IONAT ED UR norepinephri ne, 24 HR ur 32 mcg/2 4_h 15-100 normal This test was devel oped and its demetri tical perfo rmanc e romaine cteri stics have been deter mined by [employer] [facility]stic [facility] Andres [place], [place]. It has not been clear ed or appro alexandru by the U.S. Food and Drug Admin istra tion. This assay has been valid ated pursu ant to the CLIA regul ation s and is used for clini lena purpo ses. Not Available [facility] [address] [place] [address], [id number], 12/24/2023 18:51:41 12/20/1912/24/2023 CATEC HOLAM GLO, FRACT IONAT ED UR total catecholamin es 32 mcg/2 4_h 26-121 normal This test was devel oped and its demetri tical perfo rmanc e romaine cteri stics have been deter mined by [employer] [facility]stic [facility] [place], [place]. It has not been clear ed or appro alexandru by the U.S. Food and Drug Admin istra tion. This assay has been valid ated pursu ant to the CLIA regul ation s and is used for clini lena purpo ses. Not Available [facility] [address] [place] [address], [address], 12/24/2023 18:51:41 12/20/1912/24/2023 CATEC HOLAM GLO, FRACT IONAT ED UR dopamine, 24 HR ur 233 mcg/2 4_h 52-480 normal This test was devel oped and its demetri tical perfo rmanc e romaine cteri stics have been deter mined by [employer] [facility] [place]. It has not been clear ed or appro alexandru by the U.S. Food and Drug Admin istra tion. This assay has been valid ated pursu ant to the CLIA regul ation s and is used for clini lena purpo ses. Not Available [facility] [address] [place], [address], 12/24/2023 18:51:41 10/10/192025 COMPL ETE BLOOD COUNT white blood cells 5.9 10*3/ uL 3.8-10 .8 normal Not Available [facility] [address] [place] [address], [address], 10/09/2024 18:57:58 10/10/19 25 10/09/2024 COMPL ETE BLOOD COUNT red blood cells 4.34 10*6/ uL 3.80-5 .20 normal Not Available [facility] [address] [place] [address], [address], 10/09/2024 18:57:58 10/10/19 25 10/09/2024 COMPL ETE BLOOD COUNT hemoglobin 12.9 g/dL 12.0-1 6.0 normal Not Available [facility] [address] [place] [address], [address], 10/09/2024 18:57:58 10/10/1910/09/2024 COMPL ETE BLOOD COUNT hematocrit 39.0 % 35.0-4 7.0 normal Not Available [facility] [address] [place] [address], [address], 10/09/2024 18:57:58 10/10/1910/09/2024 COMPL ETE BLOOD COUNT MCV 90 fL 80-100 normal Not Available [facility] [address] [place] [address], [address], 10/09/2024 18:57:58 10/10/1910/09/2024 COMPL ETE BLOOD COUNT MCH 30 pg 26-35 normal Not Available [facility] [address] [place] [address], [address], 10/09/2024 18:57:58 10/10/19 25 10/09/2024 COMPL ETE BLOOD COUNT MCHC 33 g/dL 32-36 normal Not Available [facility] [address] [place] [address], [address], 10/09/2024 18:57:58 10/10/19 25 10/09/2024 COMPL ETE BLOOD COUNT RDW 12.6 % 11.0-1 5.0 normal Not Available [facility] [address] [place] [address], [address], 10/09/2024 18:57:58 10/10/1910/09/2024 COMPL ETE BLOOD COUNT MPV 8.8 fL 6.2-10 .5 normal Not Available [facility] [address] [place] [address], [address], 10/09/2024 18:57:58 10/10/1910/09/2024 COMPL ETE BLOOD COUNT platelet count 239 10*3/ uL 150-40 0 normal Not Available [facility] [address] [place] [address], [address], 10/09/2024 18:57:58 10/10/1910/09/2024 COMPL ETE BLOOD COUNT neutrophil,a bsolute 3.4 10*3/ uL 1.6-8. 4 normal Not Available [facility] [address] [place] [address], [address], 10/09/2024 18:57:58 10/10/19 25 10/09/2024 COMPL ETE BLOOD COUNT lymphocyte,a bsolute 2.0 10*3/ uL 0.4-5. 1 normal Not Available [facility] [address] [place] [address], [address], 10/09/2024 18:57:58 10/10/19 25 10/09/2024 COMPL ETE BLOOD COUNT monocyte,abs olute 0.4 10*3/ uL 0.0-1. 2 normal Not Available [facility] [address] [place] [address], [address], 10/09/2024 18:57:58 10/10/19 25 10/09/2024 COMPL ETE BLOOD COUNT eosinophil,a bsolute 0.1 10*3/ uL 0.0-0. 8 normal Not Available [facility] [address] [place] [address], [address], 10/09/2024 18:57:58 10/10/1910/09/2024 COMPL ETE BLOOD COUNT basophil,abs olute 0.0 10*3/ uL 0.0-0. 3 normal Not Available [facility] [address] [place] [address], [address], 10/09/2024 18:57:58 10/10/1910/09/2024 COMPL ETE BLOOD COUNT % neutrophils 57.2 % 42.0-7 8.0 normal Not Available [facility] [address] [place] [address], [address], 10/09/2024 18:57:58 10/10/1910/09/2024 COMPL ETE BLOOD COUNT % lymphocytes 33.6 % 11.0-4 7.0 normal Not Available [facility] [address] [place] [address], [address], 10/09/2024 18:57:58 10/10/1910/09/2024 COMPL ETE BLOOD COUNT % monocytes 7.3 % 0.0-11 .0 normal Not Available [facility] [address] [place] [address], [address], 10/09/2024 18:57:58 10/10/1910/09/2024 COMPL ETE BLOOD COUNT % eosinophils 1.2 % 0.0-7. 0 normal Not Available [facility] [address] [place] [address], [address], 10/09/2024 18:57:58 10/10/1910/09/2024 COMPL ETE BLOOD COUNT % basophils 0.7 % 0.0-3. 0 normal Not Available [facility] [address] [place] [address], [address], 10/09/2024 18:57:58 10/10/1910/09/2024 COMPL ETE BLOOD COUNT nucleated red cells 0.0 % 0.0-0. 9 normal Not Available [facility] [address] [place] [address], [address], 10/09/2024 18:57:58 10/10/19 25 10/09/2024 COMPL ETE BLOOD COUNT nucleated RBCs, absolute 0.00 10*3/ uL not estab. normal Not Available [facility] [address] [place] [address], [address], 10/09/2024 18:57:58 10/10/19 25 10/09/2024 VITAM IN D 25-OH vitamin D 25-oh, total 62 NG/mL >=30 NG/mL normal Not Available [facility] [address] [place] [address], [address], 10/09/2024 19:09:19 10/10/19 25 10/09/2024 B12/F OLIC ACID PANEL folic acid 14.2 NG/mL 4.6-34 .8 normal Not Available [facility] [address] [place] [address], [address], 10/09/2024 19:09:21 10/10/19 25 10/09/2024 B12/F OLIC ACID PANEL vitamin B12 429 pg/mL 232-12 45 normal Not Available [facility] [address] [place] [address], [address], 10/09/2024 19:09:21 12/15/19 24 06/23/2022 tilt table study (PROC ) No observ ation record ed. [email or web address] [facility] [address], [place], [address], 12/15/2023 14:44:10 12/20/19 24 12/16/2023 elect alvin medleygr am No observ ation record ed. BARCODE [...] record ed. BARCODE Not Available 2024 15:56:46 10/10/19 25 10/09/2024 pacem uday inter rogat ion (PROC ) No observ ation record ed. BARCODE Not Available 2024 14:31:02 10/11/19 25 10/09/2024 elect rocar diogr am No observ ation record ed. BARCODE Not Available 2024 08:05:36 11/30/1911/29/2024 US, doppl er echoc ardio gram, w/ color flow No observ ation record ed. [facility] [address] , [place], [address], 11/29/2024 17:06:58 Result Notes None recorded. Problems Name Problem SNOMED Code Status Onset Date Resolution Date Notes Provider Name and Address Organization Details Recorded Time Hypertensive disorder 86430046 Active 2023 Jazzy Gonsalves [facility] 13:44:50 Symptomatic sinus bradycardia 228572936 Active 2023 Jazzy Gonsalves [facility] 13:45:26 Tachycardia-br adycardia 96131564 Active 2023 Jazzydano Gonsalves [facility] 13:45:40 Problem Notes None recorded. Procedures Surgical History Date Name Laterality Status Provider Name and Address Organization Details Recorded Time 10/10/19 EKG completed VJ GRIFFITHS PA-C [address] [place], [address], [facility] 10/09/2024 16:28:23 10/10/19 Device Check completed VJ GRIFFITHS PA-C [address] [place], [address], [facility] 10/09/2024 16:39:37 05/11/19 25 Device Check completed KARLA JUAREZ MD [address] [place], [address] 05/11/2024 09:11:13 12/16/19 24 EKG completed KARLA JUAREZ MD [address] [place], [address] 12/16/2023 10:39:12 [facility]/15/[facility] 13:46:14 [facility]al L[facility] 12/15/2023 13:46:27 Pacemaker/Cardia c [facility] 12/15/2023 13:51:04 Imaging Results None recorded. Procedure Notes None recorded. Medical Equipment None Reported. Allergies Allergen ID Allergen Name Allergen Category Reaction Reaction Severity Criticality Documentation Date Start Date Code Code System Note Provider Name and Address Organization Details Recorded Time 929144 lisinopri l medicatio n dizziness Not available low 12/16/2023 19793 RxNorm Jazzy Gonsalves [facility] 4 10:19:46 564500 morphine medicatio n Not available Not available Not available 12/16/2023 7052 RxNorm Jazzy Gonsalves [facility] 4 10:20:08 Medications Name Sig Start Date [...] Updated DateTime 5 162.56 cm 26.3 kg/m2 14862.6 3 g 99 % 99 % 81 /min 130/84 mm[Hg] Katlin Jones [facility] 5 08:59:41 Date Recorded Body height Body mass index (BMI) Body weight Oxygen saturation Oxygen saturation in Arterial blood by Pulse oximetry Heart rate Systolic And Diastolic Provider Name and Address Organization Details Last Updated DateTime 5 162.56 cm 26.3 kg/m2 77117.6 3 g 98 % 98 % 60 /min 120/80 mm[Hg] Veda Boyer [facility] 5 14:32:39 Date Recorded Body height Body mass index (BMI) Body weight Oxygen saturation Oxygen saturation in Arterial blood by Pulse oximetry Heart rate Systolic And Diastolic Provider Name and Address Organization Details Last Updated DateTime 4 162.56 cm 26 kg/m2 19438.8 8 g 98 % 98 % 65 /min 132/86 mm[Hg] Jazzy Gonsalves [facility] 4 10:22:10 Social History Question Answer Notes LastModified by [employer] Details LastModified Time Tobacco Smoking Status Never Smoker Jazzy Gonsalves [facility] 12/15/2023 13:46:38 What Was The Date Of Your Most Recent Tobacco Screening? 05/11/2024 [email or web address] Information not available 05/11/2024 Has Tobacco Cessation Counseling Been Provided? No [email or web address] Information not available 05/11/2024 Sex: Female Functional Status Question Answer Note LastModified by [employer] Details LastModified Time Do you or have [...] Diagnosis SNOMED-CT Code Diagnosis ICD10 Code Diagnosis IMO Codes Diagnosis Note [id number] KARLA JUAREZ MD CARDIOLOG Y [address] [place] [address] 12/16/2023 09:52:20 12/16/2023 11:18:48 Cardiac pacemaker in situ 372405120 Z95.0 EKG (12/16/23) - sinus rhythm with [...] Cardiology pacemaker clinic. Labile blood pressure 25 0765158 R09.89 Symptomati flakito, the patient reports a [...] with Dr. Enmanuel Negrete (cardiolog ist in [place], [place]), and his office could not identify [...] tions:1)24 hour urine for catecholam ines2)Refe rral: [facility] (re: labile BP & HR of unknown origin) [id number] KARLA JUAREZ MD CARDIOLOG Y [address] [place] [address] 05/11/2024 08:49:19 05/11/2024 09:41:17 Cardiac pacemaker in situ 080470379 Z95.0 EKG (12/16/23) - sinus rhythm with [...] Cardiology pacemaker clinic. Labile blood pressure 25 9398626 R09.89 To review:Sym ptomatical ly, the patient [...] with Dr. Enmanuel Negrete (cardiolog ist in [place], [place]), and his office could not identify [...] catecholam glo (12/20/23) - normal levels2)Re ferral: [facility] (re: labile BP & HR of unknown origin) -the [facility] evidently is no longer taking new patients for their autonomic diseases center; patient was referred to neurology at [facility], and no provider there felt they could be of significan t help to the patient; patient has now been referred to neurology for a second opinion on her symptoms [id number] VJ GRIFFITHS PA-C CARDIOLOG Y [address] [place] [address] 10/09/2024 14:18:41 10/09/2024 15:13:42 Cardiac pacemaker in situ 113611719 Z95.0 009544 Interrogat ion today revealed 7.1-8.2 years battery longevity and no reported mode switches or eventsReco mmend continued home monitoring and annual in-office interrogat ions - next will be due 10/09/24Fol low up in [address] Juarez Labile blood pressure 25 9749164 R09.89 To review:Sym ptomatical ly, the patient [...] with Dr. Enmanuel Negrete (cardiolog ist in [place], [place]), and his office could not identify a causative factor for patient's symptoms, either. With these changes in HR & BP, patient reports feeling hot and sometimes experienci ng headaches. My suspicion continues to be that she has an autonomic nervous system problem related to her COVID-19 infections . Recommenda tions:1)24 hour urine for catecholam glo (12/20/23) - normal levels2)Re ferral: [facility] (re: labile BP & HR of unknown origin) -the [facility] evidently is no longer taking new patients for their autonomic diseases center; patient was referred to neurology at [facility], and no provider there felt they could be of significan t help to the patient; patient has now been referred to neurology and has upcoming appointmen t in ) will repeat echocardio gram to evaluate for significan t changes; last echo 12/2022 Fatigue 19012488 R53.83 [id number] Patient experienci ng extreme fatigue. TSH levels recently within normal limits. Will check labs (CBC, vit B/folate, vit D) for possible etiology of symptoms Health Concerns Section Related Observation LastModified by Organization Detai ls LastModified Time None Recorded Concern Status LastModified by Organization Details LastModified Time None Recorded Advance Directives Directive None Recorded Payers Insurance Date Sequence Insurance Name Policy Number Policy Caldera Covered Member ID Caldera Member ID Guarantor Name 11/26/2024 1 [place] [id number] R Jamshid Cha [id number] Mayela Cha Notes Date Note Type Note Provider Name and Address Organization Details Recorded Time 12/16/2023 text/html ROS as noted in the HPI Ms. Cha is a very pleasant, 53 [...] identified. She followed with Dr. Enmanuel Negrete (travel nurse in [place], [place]), and his office could not identify a causative factor for patient's symptoms, either. Patient has undergone several tests:1)Tilt Table Test (11/09/23) at [facility] ([place], [place]):-From baseline ZB=298/79 mmHg and HR=66 bpm, patient's vital signs changed with prolonged standing with peak DBP of 107 mmHg and peak WL=962 bpm. Heart rhythm and O2 sats remained [...] Family Hx: None reported KARLA JUAREZ MD [address] [place] [address], [phone], [facility] 12/16/2023 15:54:22 05/11/2024 text/html ROS as noted in the HPI Ms. Cha is a very pleasant, 53 [...] identified. She followed with Dr. Enmanuel Negrete (travel nurse in [place]), and his office could not identify a causative factor for patient's symptoms, either. Patient has undergone several tests:1)Tilt Table Test (11/09/23) at [facility] ([place], [place]):-From baseline FN=052/79 mmHg and HR=66 bpm, patient's vital signs changed with prolonged standing with peak DBP of 107 mmHg and peak QB=027 bpm. Heart rhythm and O2 sats remained [...] does activity such as bending over to machine pecan picker something. Patient returns to the clinic today for a scheduled follow-up visit. KARLA JUAREZ MD [address] [place] [address], [address], [facility] 05/11/2024 15:31:48 10/09/2024 text/html ROS as noted in the HPI Ms. Cha is a very pleasant, 53 y.o. patient with a history of dual-chamber [place] pacemaker placement in 07/07/2022 who was last seen on 05/11/24 as a self-referred patient to establish cardiac [...] identified. She followed with Dr. Enmanuel Negrete (travel nurse in [place], [place]), and his office could not identify a causative factor for patient's symptoms, either. Patient has undergone several tests:1)Tilt Table Test (11/09/23) at [facility] ([place], [place]):-From baseline CP=499/79 mmHg and HR=66 bpm, patient's vital signs changed with prolonged standing with peak DBP of 107 mmHg and peak RZ=937 bpm. Heart rhythm and O2 sats remained [...] does activity such as bending over to machine pecan picker something. 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 VJ GRIFFITHS PA-C [facility] [place], [address], [place] [facility] 10/09/2024 16:42:21 OBGyn Episode No OBEpisode recorded.
--- OUTSIDE RECORDS SUMMARY | 2025-01-31 06:43 | XMS_ITS | Clinical Summary ---
Author Organization [facility] Address [facility] [place] [address] Care Team Providers Care Youth Counselor Name Role Phone Unavailable Primary Care Provider [...] therelease of HIV test results or diagnoses. [id number] Social History Tobacco Use Types Packs/Day Years Used Date Smoking Tobacco: Never Assessed Comments Unknown Sex and Gender Information Value Date Recorded Sex Assigned at Not on file Legal Sex Female 9:19 AM EST Gender Identity Not on file Sexual Orientation Not on file Plan of Treatment Not on file Insurance BLUE ACCESS
--- OUTSIDE RECORDS SUMMARY | 2025-01-31 06:43 | XMS_ITS | Clinical Summary ---
Author Organization [facility] Address [address] [place] [address] Care Team Providers Care Vending Machine Filler Name Role Phone Cordell Stella UBALDO Primary Care Provider [phone] Allergies Active Allergy Reactions Criticality Noted Date Comments Lisinopril Dizziness 01/17/2024 Other Reaction(s): Other: See Comments Morphine Vomiting 01/17/2024 Other Reaction(s): Not available, Other: See Comments Medications esomeprazole (NexIUM) [address] capsule Take 20 mg by mouth in the morning. 11/21/2024 Active fluticasone (Flonase) 50 MCG/ACT nasal spray SHAKE LIQUID AND USE 1 SPRAY IN EACH NOSTRIL DAILY 08/14/2024 Active oxybutynin XL (Ditropan-XL) 10 MG 24 hr tablet Take 10 mg by mouth in the morning. 10/03/2024 Active Active Problems Problem Noted Date Diagnosed Date Arrhythmia 11/28/2024 Bronchitis 11/28/2024 Chest pain 11/28/2024 Cardiac pacemaker in situ 11/28/2024 Cough 11/28/2024 Disorder of the autonomic nervous system 025 Distention of vein 11/28/2024 Symptomatic sinus bradycardia 12/15/2023 Hypertension 08/25/2022 H/O: cardiac pacemaker in situ 08/25/2022 Tachycardia-bradycardia 07/01/2022 Mitral valve prolapse 05/31/2022 Postmenopausal bleeding 04/20/2016 Encounters Date Type Department Care Team Description 11/28/2024 2:20 PM EDT [facility] [address] [place], [place] [id number] Surya Aguilera MD Postural orthostatic tachycardia syndrome (POTS) (Primary Dx) 11/27/2024 Travel from Last 3 Months Social History Tobacco Use Types Packs/Day Years Used Date Smoking Tobacco: Never Smokeless Tobacco: Never Alcohol Use Standard Drinks/Week Comments Not Currently 0 (1 standard drink = 0.6 oz pur e alcohol) Comments No Sex and Gender Information Value Date Recorded Sex Assigned at Not on file Legal Sex Female 9:40 AM EDT Gender Identity Not on file Sexual Orientation Not on file Last Filed Vital Signs Vital Sign Reading Time Taken Comments Blood Pressure 140/90 11/28/2024 1:48 PM EDT Pulse 85 11/28/2024 1:48 PM EDT Temperature - - Respiratory Rate - - Oxygen Saturation - - Inhaled Oxygen Concentration - - Weight 73.5 kg (162 lb) 11/28/2024 1:48 PM EDT Height 162.6 cm (5' 4 ) 11/28/2024 1:48 PM EDT Body Mass Index 27.81 11/28/2024 1:48 PM EDT Plan of Treatment Upcoming Encounters Date Type Department Care Team (Late st Contact Info) Description 04/05/2025 10:00 AM EST Office Visit [facility] - Neurology [address] [place] [address] Surya Aguilera MD [address] [place] [address] Health Maintenance Due Date Last Done Comments CT Colonography 1968 Colonoscopy 1968 Colorectal Cancer Screening 1968 FIT-DNA (Cologuard) 1968 FIT 1968 FOBT 1968 HIV Screening 1968 Hepatitis C Screening 1968 Lipid Panel 1968 Sigmoidoscopy 1968 MMR Vaccines (1 of 1 - Standard series) 1969 Diabetes Screening 1986 Hepatitis B Screening 1986 DTaP/Tdap/Td Vaccines (1 - Tdap) 12/05/1987 Hepatitis B Vaccines (1 of 3 - 19+ 3-dose series) 12/05/1987 Pneumococcal Vaccine: 50+ Years (1 of 2 - PCV) 12/05/1987 Zoster Vaccines (1 of 2) 2018 Depression Risk Screening 03/28/2024 SDOH Screening 03/28/2024 Mammogram 05/26/2024 05/27/2023, 03/28, 03/13/2021, Additional history exists COVID-19 Vaccine ( season) 2024 08/29/2020, 08/01/2020 Influenza Vaccine (#1) 2024 HIB Vaccines Aged [...] patient's age to complete this topic Insurance ANTH Care Teams Vending Machine Filler Relationship Specialty Start Date End Date Stella Landa NP [address] [place] [id number] PCP - General 08/15/24
--- OUTSIDE RECORDS SUMMARY | 2025-01-31 06:43 | XMS_ITS | Clinical Summary ---
Author Organization [facility] Address [address] [place] [address] Care Team Providers Care Mask Designer Name Role Phone Unavailable Primary Care Provider [...] 05/08/2015 3:58 PM EST Plan of Treatment Health Maintenance Due Date Last Done Comments [facility]-Depression Screening 1968 [facility]-/Child/Adol SDOH Screenings 1968 [facility]- SDOH Screenings 1986 [facility]-Adult SDOH Screenings 1986 [facility]-DTaP,Tdap,and Td Vaccine s (1 - Tdap) 12/05/1987 [facility]-Hepatitis B Vaccines (1 of 3 - 19+ 3-dose series) 12/05/1987 [facility]-Pap Smear 1989 [facility]-Cervical Cancer Screening 1998 [facility]-HPV/Cotest 1998 CT Colonography 2013 Colonoscopy 2013 FIT-DNA 2013 FIT 2013 FOBT 2013 Sigmoidoscopy 2013 [facility]-Colorectal Cancer Screening 2013 [facility]-Pneumococcal Vaccine: 50 + Years (1 of 1 - PCV) 2018 [facility]-Zoster Vaccines (1 of 2) 2018 [id number]-70 Vaccine (1 - 20 24-25 season) 2024 [facility]-Influenza Vaccine (#1) 2024 HPV Vaccines Aged Out No longer eligi ble based on patient's age to complete this topic [facility]-HIB Vaccines Aged Out No longer e ligible based on patient's age to complete this topic [facility]-Hepatitis A Vaccines Aged Out No longer eligible based on patient's age to complete this topic [facility]-IPV Vaccines Aged Out No longer e ligible based on patient's age to complete this topic [facility]-Rotavirus Vaccines Aged Out No lo nger eligible based on patient's age to complete this topic Insurance [facility]
--- OUTSIDE RECORDS SUMMARY | 2025-01-31 06:44 | XMS_ITS | Encounter Summary ---
Author Organization [facility] Address [address] [place] [address] Care Team Providers Care Hospital Administrator Name Role Phone Stella Landa ESVIN Primary Care Provider [phone] Encounter Details Date Type Department Care Team (Latest Contact Info) Description 12/10/2024 Travel Social History Tobacco Use Types Packs/Day Years [...] PM EDT documented as of this encounter Plan of Treatment Upcoming Encounters Date Type Department Care Team (Late st Contact Info) Description 12/16/2025 9:40 AM EDT Office Visit [facility] OBGYN [address] [place] [address] Dolly Jc MD [address] [facility] [address] [place] [address] documented as of this encounter Visit Diagnoses Not on filedocumented in this encounter Care Teams Hospital Administrator Relationship Specialty Start Date End Date Stella Landa APRN [address] [place] [address] PCP - General Internal Medicine 10/26/24 documented as of this encounter
--- OUTSIDE RECORDS SUMMARY | 2025-01-31 06:44 | XMS_ITS | Clinical Summary ---
Author Organization [facility] Address [address] [place] [id number] Phone [email or web address] Care Team Providers Care Head Turning Machine Operator Name Role Phone Haddad, Jacqueline Schultz APRN Primary Care Provider Allergies [...] Date Last Done Comments CT Colonography 1968 Cervical Cancer Screening Combo 1968 Colonoscopy 1968 Colorectal Cancer Screening Combo 1968 DNA Cologuard 1968 Dental Cleaning/Exam 1968 FIT or FOBT Test 1968 HIV Screening 1968 HPV only / HPV + Pap 1968 Hepatitis C Screening 1968 Pap only testing 1968 Sigmoidoscopy 1968 Annual Preventive Exam 1986 Hep B Infection Screening - Triple Screen 1986 Hepatitis B Immunization (1 of 3 - 19+ 3-dose series) 12/05/1987 Tetanus Diphtheria and Pertussis Immunization (1 - Tdap) 12/05/1987 Pneumococcal: 50+ Years (1 of 1 - PCV) 2018 Zoster Immunization (1 of 2) 2018 Covid-19 Immunization (3 - 2024- season) 2024 08/29/2020, 08/01/2020 Influenza Immunization (#1) 2024 Breast [...] OPT OUT NO COPAY NB Care Teams Head Turning Machine Operator Relationship Specialty Start Date End Date Jacqueline Haddad APRN [address] [place] [address] PCP - General Family Medicine 04/14/21
--- OUTSIDE RECORDS SUMMARY | 2025-01-31 06:44 | XMS_ITS | Clinical Summary ---
Author Organization [facility] Address [address] [place] [address] Care Team Providers Care Wire Stitcher Operator Name Role Phone Stella Landa APRN Primary Care Provider [phone] Allergies Active Allergy Reactions Criticality Noted Date Comments Lisinopril Dizziness,GI Intolerance 01/17/2024 Other Reaction(s): Other: See Comments Morphine Other (See Comments),Nausea And Vomiting 01/17/2024 Other Reaction(s): Not available, Other: See Comments Medications oxybutynin XL (DITROPAN XL) 15 MG 24 hr tablet Take 1 tablet by mouth Daily. 12/07/2024 Active esomeprazole (nexIUM) 20 MG capsule .COMPLEX 10/22/2024 Active estradiol (ESTRACE VAGINAL) 0.1 MG/GM vaginal creamIndication s:Vaginal atrophy Insert 2 gram PV QHS x 2 weeks, then insert 2 grams PV twice weekly for duration of use 42.5 g 2 12/10/2024 Active Active Problems No known active problems Resolved Problems Problem Noted Date Diagnosed Date Resolved Date Post-menopausal bleeding 04/20/2016 Encounters Date Type Department Care Team Description 12/10/2024 9:40 AM EDT Office Visit [facility] OBGYN [address] [place] [address] Dolly Jc MD Women's annual routine gynecological examination (Primary Dx); Breast cancer screening by mammogram; Osteoporosis screening; Asymptomatic postmenopausal state; Vaginal atrophy 12/10/2024 Travel 11/27/2024 12:16 PM EDT - 11/27/2024 11:59 PM EDT Hospital Encounter [facility] [address]ina [place] [phone] Dolly Jc MD Screening mammogram for breast cancer Discharge Disposition: Home or Self Care 11/27/2024 Travel from Last 3 Months Family History Medical History Relation Name Comments [...] Orientation Straight 11/26/2024 7: 31 PM EDT Last Filed Vital Signs Vital Sign Reading Time Taken Comments Blood Pressure 142/92 12/10/2024 9:50 AM EDT Pulse 59 05/31/2022 12:42 PM EST Temperature 37.1 C (98.7 F) 05/31/2022 12:42 PM EST Respiratory Rate 18 12/10/2024 9:50 AM EDT Oxygen Saturation 100% 05/31/2022 12:42 PM EST Inhaled Oxygen Concentration - - Weight 66.2 kg (146 lb) 12/10/2024 9:50 AM EDT Height 162.6 cm (5' 4.02 ) 12/10/2024 9:50 AM ED T Body Mass Index 25.05 12/10/2024 9:50 AM EDT Plan of Treatment Upcoming Encounters Date Type Department Care Team (Late st Contact Info) Description 12/16/2025 9:40 AM EDT Office Visit [facility] OBGYN [place] [place] [address] Dolly Jc MD [address] [facility] [address] [place] [address] Health Maintenance Due Date Last Done Comments [...] ANNUAL PHYSICAL 01/15/2021 HEPATITIS C SCREENING 01/15/2021 INFLUENZA VACCINE 10/26/2024 Annual Gynecologic Pelvic an d Breast Exam 12/11/2025 12/10/2024, 02/25/2021, 02/23/2021 MAMMOGRAM 11/29/2026 11/29/2024, 04/2024, 05/27/2023, Additional history exists Procedures Procedure Name Priority Date/Time Associated Diagnosis Comments LIQUID-BASED PAP SMEAR WITH HPV GENOTYPING IF ASCUS, [facility] (NIC,COR,MAD) Routine 12/10/2024 1:34 PM EDT Women's annual routine gynecological examination MAMMO SCREENING DIGITAL TOMOSYNTHESIS BILATERAL W CAD Routine 11/27/2024 12:51 PM EDT Screening mammogram for breast cancer SCANNED - PAP SMEAR Routine 02/25/2021 from Last 3 Months or Most Recently Relevant to Health Maintenance Results * LIQUID-BASED PAP SMEAR WITH HPV GENOTYPING IF ASCUS (NIC,COR,MAD) (12/10/2024 1:34 PM EDT) Reference Lab Report [facility]TOLOGY REPORT ---- DIAGNOSIS: Negative for intraepithelial [...] results can occur. ThinPrep Pap imagined by [employer] (AI assisted system). Screened by TORI PITT (ASCP) 12/11/2024 1:56 PM EDT [facility] ThinPrep Vial Collection / Unknown 12/10/2024 1:34 PM EDT 12/10/2024 1:34 PM EDT us Dolly Jc MD PATHOLOGY/CYTOLOGY ORDERABLES Fi nal Result [facility]
[address] [place] [address], * Mammo Screening Digital Tomosynthesis Bilateral With CAD (11/27/2024 12:51 PM EDT) Anatomical Region Laterality Modality Breast N/A Mammography 11/29/2024 1:36 PM EDT Impressions 11/29/2024 1:38 PM EDT No mammographic findings suspicious for malignancy. RECOMMENDATION: Continue annual screening mammography. BI-RADS CATEGORY 1, NEGATIVE. CAD was utilized. The standard false-negative rate of mammography is between 10% and 25%. Complex patterns or increased breast density will markedly elevate the false-negative rate of mammography. A letter, in lay terminology, with the results of this exam will be mailed to the patient. 11/29/2024 1:[address] Mini Rodriguez MD on Narrative 11/29/2024 1:38 PM EDT BILATERAL SCREENING MAMMOGRAM WITH TOMOSYNTHESIS: HISTORY: The patient has no personal history or significant family history of breast cancer and no focal breast complaints at the time of screening mammography. TECHNIQUE: Bilateral CC and MLO low dose, full field digital mammographic images were obtained with tomosynthesis. COMPARISON: 01/23/2015, 02/09/2017, 08/10/2018, 03/13/2021, 04/13/2022, and 05/27/2023 FINDINGS: There are scattered areas of fibroglandular density. The fibroglandular pattern is stable. There are no suspicious masses, worrisome calcifications, nonsurgical areas of architectural distortion, or other secondary signs of malignancy. us Dolly Jc MD IMG MAMMOGRAPHY ORDERABLES Final Result * PAP SMEAR SCANNED (02/25/2021) us Dolly Jc MD CHART REVIEW TABS Final Resul t [facility]
[address] [place] [address], [place] [phone] from Last 3 Months or Most Recently Relevant to Health Maintenance Insurance Care Teams Wire Stitcher Operator Relationship Specialty Start Date End Date Stella Landa APRN [address] [facility] [address] [facility] [place] [address] PCP - General Internal Medicine 10/26/24
== END ==
LOC: SL 06:42
PROVIDERS: PCP Nurse Practitioner Family; Visit Provider Nurse Practitioner Family
DX: G90.A Postural orthostatic tachycardia syndrome [POTS] (principal)
CPT/HCPCS: G0399